=== PATIENT | male | born 1940 | race Caucasian/White ===

== ENCOUNTER 2023-01-11 11:46 | Emergency (ER) | payer MEDICARE, OTHER, SELFPAY ==
[2023-01-11] VITALS (15 sets, daily range): BP systolic 134–152; BP diastolic 71–79; PULSE 48–66; RESP 16; TEMP 36.6; O2SAT 96–99; BMI 28.3
--- NOTE | 2023-01-11 17:10 | CRLHL7_ITS ---
For Patients: As a result of the Century Cures Act, medical imaging exams and procedure reports are released immediately into your electronic medical record. You may view this report before your referring provider. If you have questions, please contact your health care provider. HISTORY: Fall. Lateral ankle pain. TECHNIQUE: Left ankle 3 views. COMPARISON: None. FINDINGS: No fracture. Ankle mortise is congruent. Joint spaces are maintained. Thickening of retrocalcaneal soft tissues near the distal Achilles tendon. Soft tissue swelling in the lower leg and at the ankle. IMPRESSION: 1. No acute bone abnormality. 2. Soft tissue thickening in the area of the Achilles insertion on the calcaneus may be from tendinopathy. Dictated by Oz Segovia MD @ 01/11/2023 5:50:38 PM (Electronically Signed)
--- NOTE | 2023-01-11 17:23 | ED_ITS ---
HPI - Extremity Injury (Lower) General Chief Complaint: Extremity Pain/Injury, Lower Stated Complaint: L ankle injury Time Seen by Provider: 01/11/23 17:03 History of Present Illness HPI Narrative: 82-year-old man presenting to the emergency department with neighbor after sustaining an injury to his left foot/ankle. He has pain there. Has been able to ambulate gingerly. Slipped on the ice outside about 4 days ago. Has not removed his shoes or socks in the interim. No other injuries apparently were sustained. No fever. No rashes. Has had swelling of the ankle area. Related Data Home Medications Medication Instructions Recorded Confirmed atorvastatin 20 mg tablet mg 01/11/23 lisinopril 5 mg tablet mg 01/11/23 omeprazole 20 mg capsule,delayed mg 01/11/23 release tamsulosin 0.4 mg capsule mg PO 01/11/23 warfarin 2.5 mg tablet mg 01/11/23 Allergies Allergy/AdvReac Type Severity Reaction Status Date / Time No Known Drug Allergies Allergy Verified 01/11/23 12:17 Review of Systems Status of ROS: Reports: 6 or more systems reviewed and unremarkable except as noted in History and below [facility] Social History Smoking Status: Never smoker How often do you have a drink containing alcohol: never AUDIT-C Alcohol total score: 0 Non-prescribed substance use: denies use Exam Narrative: Exam Narrative: Pleasant. He is NAD. Personal hygiene seems to be suffering a little. Is lying in the bed semi-recumbent. Moving all extremities without difficulty, though movement involving the left ankle is painful. Is a gingerly remove both shoes and socks from both feet able to examine better. Toenails are getting a little long and thick. No inflammatory change related to this. There is some hemosiderin deposition around the left ankle and superior to that. He is tender in particular generally to palpation of the lateral malleolus. Somewhat on the medial as well but less so. There is 1+ pitting edema diffusely around the ankle. Able to dorsiflex and plantar flex without significant difficulty. Most noticeable with some odor and moisture on the feet as I was removing the socks. There are holes in the socks and stained with body fluid on the lateral plantar surface. This is consistent with some edematous call loss of the in might be a blister formation also within the heel callus on the plantar surface. All consistent with prolonged moisture/trench foot. There is wet black decay in between the left 4th/5th and 3rd/4th toes. I do not however appreciate cellulitic change. Const: Vital Signs, click to edit/add: Vital Signs - 24 hr 01/11/23 12:14 Temperature 97.8 F Pulse Rate [Left P ulse Oximeter] 48 L Respiratory Rate 16 Blood Pressure [Le ft Upper Arm] 151/73 H Pulse Oximetry 97 Oxygen Delivery Me thod Room Air Documenting provider has reviewed patient's vital signs: yes Course Vital Signs Vital signs: Initial Vital Signs Temperature 97.8 F 01/11/23 12:14 Temperature Source Temporal Artery Scan 01/11/23 12:14 Pulse Rate 48 L 01/11/23 12:14 Respiratory Rate 16 01/11/23 12:14 Blood Pressure 151/73 H 01/11/23 12:14 Blood Pressure Mean 99 01/11/23 12:14 Blood Pressure Position Sitting 01/11/23 12:14 Pulse Oximetry 97 01/11/23 12:14 Oxygen Delivery Method 01/11/23 12:14 Vital Signs Temperature 97.8 F 01/11/23 12:14 Pulse Rate 48 L 01/11/23 12:14 Respiratory Rate 16 01/11/23 12:14 Blood Pressure 151/73 H 01/11/23 12:14 Pulse Oximetry 97 01/11/23 12:14 Oxygen Delivery Method 01/11/23 12:14 Temperature 97.8 F 01/11/23 12:14 Pulse Rate 55 L 01/11/23 18:32 Respiratory Rate 16 01/11/23 12:14 Blood Pressure 152/79 H 01/11/23 18:32 Pulse Oximetry 96 01/11/23 18:32 Oxygen Delivery Method 01/11/23 12:14 MDM - Extremity Injury (Lower) MDM Narrative Medical decision making narrative: Pending at this time is x-ray from the ankle. Would reassess foot after better cleaning and a period of drying. By my read X-rays appear negative for acute bony abnormality. Osteoarthritic changes. There is some evidence of soft tissue swelling. Mortise maintained. See radiology over-read as below. FINDINGS: No fracture. Ankle mortise is congruent. Joint spaces are maintained. Thickening of retrocalcaneal soft tissues near the distal Achilles tendon. Soft tissue swelling in the lower leg and at the ankle. IMPRESSION: 1. No acute bone abnormality. 2. Soft tissue thickening in the area of the Achilles insertion on the calcaneus may be from tendinopathy. Discharge Plan Discharge Clinical Impression: Ankle sprain and strain, Trench foot Patient Disposition: Home w/ Parent or Adult Condition: Stable Additional Instructions: Can use these Jose wraps to hold on icing packs as discussed. Remember not to ice directly to your skin but through thin layer of cloth. Elevate for comfort when at rest. Can use the Aircast to help you get about over this next week. Would be good to try to limit your ambulation though over the next few days. See handout for some exercises/stretches that you can start doing. Follow-up if really not improved in a week - 10 days. Important to allow your feet to dry out. I think that is a good suggestion that you move to some shoes that would be easier to take on and off. Prescriptions: No Action atorvastatin 20 mg tablet Label Comments: TAKE 1 TABLET BY MOUTH ONCE DAILY. warfarin 2.5 mg tablet Label Comments: TAKE ONE-HALF TABLET (2.5 MG) BY MOUTH EVERY MON, WED, FRI; 1 TABLET (2.5 MG) ALL OTHER DAYS IN THE EVENING OR DIRECTED tamsulosin 0.4 mg capsule PO Label Comments: TAKE ONE CAPSULE BY MOUTH ONCE DAILY AFTER A MEAL omeprazole 20 mg capsule,delayed release(DR/EC) Label Comments: TAKE ONE CAPSULE BY MOUTH ONCE DAILY BEFORE A MEAL lisinopril 5 mg tablet Label Comments: TAKE 1 TABLET BY MOUTH ONCE DAILY Follow Up/Referrals: Fernando Alex MD [Primary Care Provider] - Stand Alone Forms: [employer] Info Instructions
== END 2023-01-11 18:55 | disposition home or self-care (01) ==
PROVIDERS: Emergency Provider Family Medicine; PCP Family Medicine
DX: S93.402A Sprain of unspecified ligament of left ankle, initial encounter (principal); W00.9XXA Unspecified fall due to ice and snow, initial encounter
CPT/HCPCS: 73610; 99283; 99284

== ENCOUNTER 2023-09-01 07:56 | Outpatient (CLI) | payer MEDICARE, OTHER, SELFPAY | END 2023-09-01 07:57 | disposition home or self-care (01) | LOC: WOUND 07:58 | PROVIDERS: PCP Family Medicine; Visit Provider Nurse Practitioner Family | DX: I87.313 Chronic venous hypertension (idiopathic) with ulcer of bilateral lower extremity (principal); E11.622 Type 2 diabetes mellitus with other skin ulcer; L97.828 Non-pressure chronic ulcer of other part of left lower leg with other specified severity; L97.818 Non-pressure chronic ulcer of other part of right lower leg with other specified severity | CPT/HCPCS: 97602; 99214 ==

== ENCOUNTER 2023-09-09 09:47 | Outpatient (CLI) | payer MEDICARE, OTHER, SELFPAY | END 2023-09-09 09:48 | disposition home or self-care (01) | LOC: WOUND 09:47 | PROVIDERS: PCP Family Medicine; Visit Provider Nurse Practitioner Family | DX: I87.313 Chronic venous hypertension (idiopathic) with ulcer of bilateral lower extremity (principal); L97.828 Non-pressure chronic ulcer of other part of left lower leg with other specified severity; L97.818 Non-pressure chronic ulcer of other part of right lower leg with other specified severity | CPT/HCPCS: 99213 ==

== ENCOUNTER 2023-09-15 08:53 | Outpatient (CLI) | payer MEDICARE, OTHER, SELFPAY | END 2023-09-15 08:54 | disposition home or self-care (01) | LOC: WOUND 08:53 | PROVIDERS: PCP Family Medicine; Visit Provider Nurse Practitioner Family | DX: E11.622 Type 2 diabetes mellitus with other skin ulcer (principal); I87.313 Chronic venous hypertension (idiopathic) with ulcer of bilateral lower extremity; L97.818 Non-pressure chronic ulcer of other part of right lower leg with other specified severity; L97.828 Non-pressure chronic ulcer of other part of left lower leg with other specified severity | CPT/HCPCS: 99212 ==

== ENCOUNTER 2024-12-11 11:24 | Emergency (ER) | payer MEDICARE, OTHER, SELFPAY ==
--- OUTSIDE RECORDS SUMMARY | 2024-12-11 11:26 | XMS_ITS ---
Author Organization [facility] Address Unknown Problems Problem Status Start Date End Date ENCOUNTER FOR SURGICAL AFTER CARE FOLLOWING SURGERY ON THE DIGESTIVE SYSTEM (Primary) (Z48.815 - ICD-10-CM) ACTIVE 019 DISPLACED FRACTURE OF BASE O F NECK OF LEFT FEMUR, SUBSEQUENT ENCOUNTER FOR CLOSED FRACTURE WITH ROUTINE HEALING (Primary) (S72.042D - ICD-10-CM) RESOLVED 05/23/2017 07/17/2019 MUSCLE WEAKNESS (GENERALIZED) (M62.81 - ICD-10-CM) RES OLVED 05/23/2017 07/17/2017 DIFFICULTY IN WALKING, NOT E LSEWHERE CLASSIFIED (R26.2 - ICD-10-CM) RESOLVED 05/23/2017 07/17/2017 DIFFICULTY IN WALKING, NOT E LSEWHERE CLASSIFIED (R26.2 - ICD-10-CM) ACTIVE 07/22/2019 ESSENTIAL (PRIMARY) HYPERTENSION (I10 - ICD-10-CM) ACT JAZMYNE 05/23/2017 TYPE 2 DIABETES MELLITUS WIT HOUT COMPLICATIONS (E11.9 - ICD-10-CM) ACTIVE 05/23/2017 PERSONAL HISTORY OF PULMONAR Y EMBOLISM (Z86.711 - ICD-10-CM) ACTIVE 05/23/2017 CARE HOME (CURRENT) USE OF A NTICOAGULANTS (Z79.01 - ICD-10-CM) ACTIVE 05/23/2017 POLYOSTEOARTHRITIS, UNSPECIFIED (M15.9 - ICD-10-CM) AC TIVE 05/23/2017 HISTORY OF FALLING (Z91.81 - ICD-10-CM) RESOLVED 0 05/23/2017 07/17/[address] SCOTT LEVEL MONITORING (Z51.81 - ICD-10-CM) ACTIVE 07/22/2019 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 with no home health services [facility] 05/23/2017 04:00 pm EDT - 07/17/2017 05:40 pm EDT Discharge - Discharged to home or self care - Do Not Use - Private home/apt. with home health services [facility] 07/22/2019 03:45 pm EDT - 07/30/2019 06:11 pm EDT Immunizations Vaccine Date TB 2 Step [facility]oux Skin Test 06/07/2017 0 1:00 pm EDT TB 2 Step [facility]oux Skin Test 05/24/2017 0 6:30 pm EDT Custom Influenza 12/10/2016 01:00 am EST PPSV23, Pneumovax 23 11/19/2005 01:00 am EST PCV13, Pktjqhd86 12/10/2016 01:00 am EST QuantiFERON-TB Gold 07/26/2019 01:00 am EDT Social History
--- OUTSIDE RECORDS SUMMARY | 2024-12-11 11:26 | XMS_ITS | Clinical Summary ---
Author Organization [facility] Address [place], [place] [address] Care Team Providers Care Fleet Mechanic Name Role Phone Fernando Alex MD Primary Care Provider [phone] Allergies No known active allergies Medications brimonidine (ALPHAGAN) 0.2 % ophthalmic solution Place 1 Drop into left eye 2 times daily. 12/12/19 21 Active tamsulosin 0.4 mg capsuleIndications :BPH without urinary obstruction Take 1 Capsule (0.4 mg) by mouth once daily after a meal. 90 Capsule 3 10/26/20 24 Active metFORMIN (GLUCOPHAGE XR) 500 mg Extended-Release tabletIndications: Type 2 diabetes mellitus without complication, without long-term current use of insulin (HC) Take 2 Tablets (1,000 mg) by mouth once daily. Take in the morning. 180 Tablet 3 10/26/20 24 Active lisinopriL (PRINIVIL; ZESTRIL) 5 mg tabletIndications: Essential hypertension Take 1 Tablet (5 mg) by mouth once daily. 90 Tablet 3 10/26/20 24 Active empagliflozin (JARDIANCE) 10 mg tabletIndications: Type 2 diabetes mellitus without complication, without long-term current use of insulin (HC) Take 1 Tablet (10 mg) by mouth once daily. Take in the morning with breakfast. 90 Tablet 3 10/26/20 24 Active atorvastatin (LIPITOR) 20 mg tabletIndications: Hyperlipidemia, unspecified hyperlipidemia type Take 1 Tablet (20 mg) by mouth once daily. 90 Tablet 3 10/26/20 24 Active warfarin (COUMADIN) 2.5 mg tabletIndications: Bilateral pulmonary embolism (HC),Anticoagulati on monitoring, INR range 2-3 Take by mouth 2.5mg (1 tablet) every Friday/Fri / day and 1.25mg (1/2 tablet) rest of days in the evening or as directed per INR results 68 Tablet 11/23/19 25 Active warfarin (COUMADIN) 2.5 mg tabletIndications: Bilateral pulmonary embolism (HC),Anticoagulati on monitoring, INR range 2-3 Take by mouth 2.5 mg (2.5 mg x 1) every e, Leena, Sat; 1.25 mg (2.5 mg x 0.5) all other days in the evening OR as directed 10/26/20 24 025 Discontinued Active Problems Problem Noted Date Diagnosed Date Type 2 diabetes mellitus wit hout complication, without long-term current use of insulin 01/01/2022 Overview (01/01/2022): Diagnosed again with blood sugar over 200 and A1C of 8.8 as of 01/01/2022 Asbestosis 12/24/2021 BPH without urinary obstruction 08/02/2019 Essential hypertension 12/16/2018 Hyperlipidemia 07/25/2017 Anticoagulation monitoring, INR range 2-3 2013 Edema 04/16/2013 CTS (carpal tunnel syndrome) 04/01/2013 Overview (08/30/2019): Bilateral worse on left S/P right carpal tunnel release in 04/2013 Bilateral pulmonary embolism 03/26/2013 Overview (04/01/2013): Bilateral extensive PE diagnosed 03/23/2013 Arthritis 01/18/2013 Resolved Problems Problem Noted Date Diagnosed Date Resolved Date Asbestosis 02/03/2024 02/03/2024 Controlled type 2 diabetes m ellitus without complication, without long-term current use of insulin 07/25/2017 07/07/2019 Low back pain 04/16/2011 09/29/2015 Encounters Date Type Department Care Team Description 11/22/2024 Refill [facility] [address] [place] [address] Fernando Alex MD Refill Request (Warfarin) 11/15/2024 11:15 AM SLITTER CUT OFF OPERATOR Orders Only [facility] [address] [place] [address] [place] [facility] 11/15/2024 Anticoagulation (warfarin) [facility] [address] [place] [address] 1, [place] [facility] Anticoagulation 10/26/2024 9:10 AM SLITTER CUT OFF OPERATOR Office Visit [facility] [address] [place] [address] Fernando Alex MD Diabetes (Routine follow up); Immunization/Injection 10/26/2024 Anticoagulation (warfarin) [facility] [address] [place] [address] 1, [place] [facility] Anticoagulation 10/26/2024 Travel 10/20/2024 9:00 AM SLITTER CUT OFF OPERATOR Orders Only [facility] [place] [address] [place] [facility] 10/20/2024 Anticoagulation (warfarin) [facility] [address] [facility] [place] [facility] Antico[facility] 10/20/2024 Travel 09/15/2024 Telephone [facility] [address] [place] [address] Fernando Alex MD Anticoagulation (Lab orders) 09/10/2024 7:45 AM CDT Orders Only [facility] [address] [place] [address] [place] [facility] 09/10/2024 Anticoagulation (warfarin) [facility] [address] [facility] [place] [facility] Anticoagulation (Lab ) 09/10/2024 Travel from Last 3 Months Immunizations Name Administration Dates Next Due COVID-19 VACCINE SPIKEVAX (M ODERNA 50MCG/0.5ML) 12YO+ PFS 03/05/2024 COVID-19 vaccine (MYR-Bio NTech 30mcg/0.3mL) 12YO+ BIVALENT PF, MDV 12/20/2022 COVID-19 vaccine (MYR-Bio NTech 30mcg/0.3mL) 12YO+ ANDRES-SUCROSE PF, MDV 12/24/2021 COVID-19 vaccine (Pfizer-Bio NTech 30mcg/0.3mL) PF, MDV 01/30/2021,01/09/2021 Influenza, High-dose Inactivated 12/10/2016,09/17,09/27/2014 Influenza, IIV3 (Age >=3 years) 08/12/2013,11/27,11/19/2005 Influenza, Inactivated AIIV4 (Age 65+ Years) Preserv Free 08/13/2023,12/20/2022,12/24/2021,2019 Influenza, Inactivated IIV3 (Age 65+ Years) Preserv Free 10/26/2024,08/30/2019,10/29/2017 Pneumococcal Poly,23-Valent (Pneumovax) 11/19/2005 Pneumococcal conj 13-Valent (Prevnar 13) 12/10/2016 Td (Age >=7 Years) 11/19/2005 Td, Preservative Free (age > = 7 Years) 11/19/2005 Tdap 03/14/2021 Family History Medical History Relation Name Comments COPD Brother on oxygen; of copd at 86 Other Father of old age in mid 80s Stroke Mother of complic ations of stroke at around 85 Relation Name Status Comments Brother Father (Age 80s) Old age Mother (Age 85) CVA Social History Tobacco Use Types Packs/Day Years Used Date Smoking Tobacco: Never Passive Smoke Exposure: Never Smokeless Tobacco: Never Tobacco Cessation:Counseling Given: Yes Alcohol Use Standard Drinks/Week Comments Not Currently 0 (1 standard drink = 0.6 oz pur e alcohol) PHQ-2 Answer Date Recorded PHQ-2 TOTAL SCORE 1 03/05/2024 Social Connections Answer Date Recorded Do you often feel lonely or isolated from those around you? 0 10/26/2024 Alcohol Use Answer Date Recorded How often do you have a drink containing alcohol ? 0 08/13/2023 Average Number of Drinks Not on file 023 Frequency of Binge Drinking Not on file 07/19 Financial Resource Strain Answer Date R ecorded Difficulty of Paying Living Expenses 3 10/26/2024 Difficulty of Paying Living Expenses Not on file 10/26/2024 Food Insecurity Answer Date Recorded Do you worry your food will run out before you are able to buy more? 1 10/26/2024 Transportation Needs Answer Date Record ed Does lack of transportation keep you from medica l appointments? 1 10/26/2024 Does lack of transportation keep you from work, meetings or getting things that you need? 1 10/26/2024 Housing Stability Answer Date Recorded What is your housing situation today? 1 10/26/2024 Utilities Answer Date Recorded Do you have trouble paying f or utilities (for example, heat, electricity, water, phone)? 1 10/26/2024 Sex and Gender Information Value Date Recorded Sex Assigned at Not on file Legal Sex Male 5:25 AM SLITTER CUT OFF OPERATOR Gender Identity Not on file Sexual Orientation Not on file Occupation Industry Job Start Date Job End Date Retired Not on file Not on file Not on file Obstetrics History Last Filed Vital Signs Vital Sign Reading Time Taken Comments Blood Pressure 128/64 10/26/2024 9:50 AM SLITTER CUT OFF OPERATOR Pulse 44 10/26/2024 9:13 AM SLITTER CUT OFF OPERATOR Temperature 36.2 C (97.2 F) 10/26/2024 9:13 AM SLITTER CUT OFF OPERATOR Respiratory Rate 16 09/11/2022 2:52 PM CDT Oxygen Saturation 98% 10/26/2024 9:13 AM SLITTER CUT OFF OPERATOR Inhaled Oxygen Concentration - - Weight 80 kg (176 lb 6.4 oz) 10/26/2024 9:08 AM SLITTER CUT OFF OPERATOR Height 165.3 cm (5' 5.08) 03/05/2024 9:14 AM CD T Body Mass Index 29.28 03/05/2024 9:14 AM CDT Plan of Treatment Upcoming Encounters Date Type Department Care Team (Late st Contact Info) Description 12/16/2024 7:30 AM SLITTER CUT OFF OPERATOR Orders Only [facility] [address] [facility] [address] [place] 01/18/2025 9:30 AM SLITTER CUT OFF OPERATOR Orders Only [facility] [address] [place] [address] [place] 01/25/2025 9:35 AM CDT Office Visit [facility] [address] [facility] [address] Fernando Alex MD [address] [facility] [address] Health Maintenance Due Date Last Done Comments Zoster (shingles) series for age 50+ (1 of 2) 1988 RSV vaccine for adults or (1 - 1-dose 75+ series) 2013 COVID-19 vaccine series (2023- season) 2024 03/05/2024, 12/20/2022, 05/17/2022, Additional history exists BMI (ht and wt on same day) for age 18+ 03/05/2025 03/05/2024, 02/03/2024, 09/01/2023, Additional history exists Depression screening for age 12+ 03/05/2025 03/05/2024, 12/20/2022, 12/24/2021, Additional history exists Medicare Wellness for age 65+ 03/06/2025, 12/24/2021, 08/18/2020, Additional history exists Tetanus booster 03/14/2031 03/14/2021, 01/2006, 11/19/2005 Pneumococcal series for age 50+ Completed 7, 11/19/2005 Tdap Completed 03/14/2021 Influenza for age 65+ Completed 10/26/2024 , 08/13/2023, 12/20/2022, Additional history exists Procedures Procedure Name Priority Date/Time Associated Diagnosis Comments INR,POCT Routine 11/15/2024 12:21 PM SLITTER CUT OFF OPERATOR Bilateral pulmonary embolism (HC) Anticoagulation monitoring, INR range 2-3 INR,POCT Routine 10/26/2024 10:14 AM SLITTER CUT OFF OPERATOR Bilateral pulmonary embolism (HC) Anticoagulation monitoring, INR range 2-3 HEMOGLOBIN A1C MONITORING (POCT) Routine 10/20/2024 9:07 AM SLITTER CUT OFF OPERATOR Type 2 diabetes mellitus without complication, without long-term current use of insulin (HC) VITAMIN B12 Routine 10/20/2024 9:06 AM SLITTER CUT OFF OPERATOR Chronic GERD LIPID PANEL W REFLEX MEASURED LDL Routine 10/20/2024 9:06 AM SLITTER CUT OFF OPERATOR Other hyperlipidemia BASIC METABOLIC PANEL Routine 10/20/2024 9:06 AM SLITTER CUT OFF OPERATOR Essential hypertension PROTIME-INR Routine 10/20/2024 9:05 AM SLITTER CUT OFF OPERATOR Bilateral pulmonary embolism (HC) Anticoagulation monitoring, INR range 2-3 INR,POCT Routine 09/10/2024 7:54 AM CDT Bilateral pulmonary embolism (HC) Anticoagulation monitoring, INR range 2-3 from Last 3 Months Results * (ABNORMAL) INR - POCT [36131.2] - Standing Order (11/15/2024 12:21 PM SLITTER CUT OFF OPERATOR) Only the most recent of3 resultswithin the time period is included. INR 2.4(H) ratio [facility] Comment: INRs >2.9 may be falsely elevated in patients receiving either unfractionated Heparin or Low Molecular Weight Heparin. Follow up testing in a hospital laboratory may be helpful if clinically indicated. INR results of > or = 5.0 should be verified using the standard venipuncture procedure. Reference Range 0.9-1.1 Moderate-intensity Warfarin Therapy 2.0-3.0 Higher-intensity Warfarin Therapy 3.0-4.0 PROTHROMBIN TIMEP 28.7(H) 10.5 - 13.1 sec [facility] Comment: Point of care fingerstick Prothrombin Time/INR results may vary from venous Prothrombin Time/INR methodologies. Any results exhibiting inconsistency with the patient's clinical status should be repeated using a venous Prothrombin Time/INR method. Blood BLOOD SPECIMEN / Unknown 11/15/2024 12:21 PM SLITTER CUT OFF OPERATOR 11/15/2024 12:22 PM SLITTER CUT OFF OPERATOR us Fernando Alex MD LABORATORY Final Resu lt [facility] [address] [place] [address], [facility] [address] [place] [address] * (ABNORMAL) HEMOGLOBIN A1C MONITORING POCT (10/20/2024 9:07 AM SLITTER CUT OFF OPERATOR) POC HEMOGLOBIN A1C 8.8(H) <6.0 % OF TOTAL HGB [facility] Comment: Any point of care results exhibiting inconsistency with the patient's clinical status should be repeated using a different testing method. Blood BLOOD SPECIMEN / Unknown 10/20/2024 9:07 AM SLITTER CUT OFF OPERATOR 10/20/2024 9:08 AM SLITTER CUT OFF OPERATOR us Fernando Alex MD CHEMISTRY Final Resu lt [facility] [address] [place] [address], [facility] [address] [place] [address] * LIPID PANEL W REFLEX MEASURED LDL (10/20/2024 9:06 AM SLITTER CUT OFF OPERATOR) CHOLESTEROL, TOTAL 145 <200 mg/dL [facility] HDL CHOLESTEROL 52 > OR = 40 mg/dL [facility] TRIGLYCERIDES 93 <150 mg/dL [facility] LDL-CHOLESTEROL 75 mg/dL (calc) [facility] Comment: Reference range: <100 Desirable range <100 mg/dL for primary prevention; <70 mg/dL for patients with CHD or diabetic patients with > or = 2 CHD risk factors. LDL-C is now calculated using the Edward-Lindy calculation, which is a validated novel method providing better accuracy than the Friedewald equation in the estimation of LDL-C. Edward MATT et al. SHAYNE. 2013;310(19): 2282-1437 (http://education.[employer]/faq/GPO193) CHOL/HDLC RATIO 2.8 <5.0 (calc) [facility] NON HDL CHOLESTEROL 93 <130 mg/dL (calc) [facility] Comment: For patients with diabetes plus 1 major ASCVD risk factor, treating to a non-HDL-C goal of <100 mg/dL (LDL-C of <70 mg/dL) is considered a therapeutic option. Blood BLOOD SPECIMEN / Unknown 10/20/2024 9:06 AM SLITTER CUT OFF OPERATOR 10/20/2024 9:07 AM SLITTER CUT OFF OPERATOR Fernando Alex MD CHEMISTRY Final Resu lt [facility] [address] [place] [address], [facility] [address] [place] [address] * VITAMIN B12 (10/20/2024 9:06 AM SLITTER CUT OFF OPERATOR) [facility] VITAMIN B12 534 200 - 1,100 pg/mL [facility] Blood BLOOD SPECIMEN / Unknown 10/20/2024 9:06 AM SLITTER CUT OFF OPERATOR 10/20/2024 9:07 AM SLITTER CUT OFF OPERATOR Fernando Alex MD CHEMISTRY Final Resu lt Performing Organization Address City/[facility]/ZIP Co de Phone Number [facility] [address] [place] [phone], [facility] [address] [place] [address] * (ABNORMAL) BASIC METABOLIC PANEL (10/20/2024 9:06 AM SLITTER CUT OFF OPERATOR) Pathologist [facility] GLUCOSE 190(H) 65 - 99 mg/dL [facility] Comment: Fasting reference interval For someone without known diabetes, a glucose value >125 mg/dL indicates that they may have diabetes and this should be confirmed with a follow-up test. UREA NITROGEN (BUN) 32(H) 7 - 25 mg/dL [facility] CREATININE 1.28(H) 0.70 - 1.22 mg/dL [facility] EGFR 55(L) > OR = 60 mL/min/1.7 3m2 [facility] BUN/CREATININE RATIO 25(H) 6 - 22 (calc) [facility] SODIUM 139 135 - 146 mmol/L [facility] POTASSIUM 5.3 3.5 - 5.3 mmol/L [facility] CHLORIDE 104 98 - 110 mmol/L [facility] CARBON DIOXIDE 27 20 - 32 mmol/L [facility] ELECTROLYTE BALANCE 8 7 - 17 mmol/L (calc) [facility] CALCIUM 9.2 8.6 - 10.3 mg/dL [facility] Blood BLOOD SPECIMEN / Unknown 10/20/2024 9:06 AM SLITTER CUT OFF OPERATOR 10/20/2024 9:07 AM SLITTER CUT OFF OPERATOR us Fernando Alex MD CHEMISTRY Final Resu lt [facility] [address] [place] [address], [facility] [address] [place] [address] * (ABNORMAL) PROTIME-INR [[id number]] - Standing Order (10/20/2024 9:05 AM SLITTER CUT OFF OPERATOR) INR 4.2(H) <1.3 10/20/2024 2:01 PM [facility] PROTIME 48.5(H) 10.6 - 12.4 sec 10/20/2024 2:01 PM SLITTER CUT OFF OPERATOR [facility] Blood BLOOD SPECIMEN / Unknown [facility] / Unknown 10/20/2024 9:05 AM SLITTER CUT OFF OPERATOR 10/20/2024 9:05 AM SLITTER CUT OFF OPERATOR Narrative [facility] - 10/20/2024 2:01 PM SLITTER CUT OFF OPERATOR Therapeutic Range 2.0-3.0 for most anticoagulated patients 2.5-3.5 or 4.0 for high risk patients The INR is only used for patients on stable oral anticoagulant therapy. It makes no significant contribution to the diagnosis or treatment of patients whose Protime is prolonged for other reasons. INR results are increased when heparin levels exceed 1.0 U/mL, which corresponds to an aPTT >125 seconds if the patient is on UFH. us Fernando Alex MD HEMATOLOGY Final Resu lt [facility] [address] [place] [address], from Last 3 Months Insurance MEDICARE PB ONLY MEDICARE PART B HB ONLY [employer] [id number] [facility] Care Teams Fleet Mechanic Relationship Specialty Start Date End Date Fernando Alex MD [address] [place] [address] PCP - General Family Practice 07/25/17
[2024-12-11 11:27] VITALS: BP 146/68; PULSE 57; RESP 20; TEMP 36.3; O2SAT 95
--- NOTE | 2024-12-11 11:50 | CRLHL7_ITS ---
For Patients: As a result of the Cures Act, medical imaging exams and procedure reports are released immediately into your electronic medical record. You may view this report before your referring provider. If you have questions, please contact your health care provider. INDICATION: Cough. Possible pneumonia. COMPARISON: None. FINDINGS: Heart size is at the upper limit of normal. There is atherosclerotic calcification within the aortic arch. There is small calcified benign granuloma within left mid lung. The lungs are otherwise essentially clear. The pulmonary vasculature and pleural surfaces appear normal. The bony thorax appears intact. IMPRESSION: No acute process identified. Dictated by He Amin MD @ 12/11/2024 1:11:14 PM (Electronically Signed)
--- NOTE | 2024-12-11 11:51 | ED_ITS ---
HPI - General Adult General Chief complaint: Cough Stated complaint: Possible Pneumonia, Can't keep Balance Time Seen by Provider: 12/11/24 11:47 History of Present Illness HPI narrative: This 84-year-old male comes in reporting upper respiratory symptoms that began yesterday. He has cough and some congestion. He does not report any fevers. He arrives here with reassuring vital signs. Related Data Home Medications ?Medication ?Instructions ?Recorded ?Confirmed atorvastatin 20 mg tablet mg 01/11/23 08/21/23 lisinopril 5 mg tablet mg 01/11/23 08/21/23 omeprazole 20 mg capsule,delayed mg 01/11/23 08/21/23 release tamsulosin 0.4 mg capsule mg PO 01/11/23 08/21/23 warfarin 2.5 mg tablet mg 01/11/23 08/21/23 Previous Rx's ?Medication ?Instructions ?Recorded bacitracin 500 unit/gram topical 1 applic topical TID #14 grams 08/21/23 ointment Allergies Allergy/AdvReac Type Severity Reaction Status Date / Time No Known Drug Allergies Allergy Verified 08/21/23 12:54 Review of Systems Status of ROS: Reports: 10 or more systems reviewed and unremarkable except as noted in History and below Narrative: Constitutional: No fevers, no weight gain or loss. Eyes: No discharge. No vision changes. HENT: No congestion, no sore throat, no ear pain. Cardiovascular: No chest pain, no palpitations. Respiratory: No shortness of breath, no wheezes. He has a cough. Gastrointestinal: No abdominal pain, no vomiting, no diarrhea. Genitourinary: No dysuria, no hematuria. Musculoskeletal: Normal range of motion. Skin: No rashes, no pruritis. Neurological: No weakness, sensory change, speech change. He reports some dizziness. Endo/Heme/Allergies: No bruising or bleeding. No polydipsia. Pysch: no suicidality, no anxiety, no insomnia. All other systems reviewed and are negative. [facility] Social History Smoking Status: Never smoker How often do you have a drink containing alcohol: never AUDIT-C Alcohol total score: 0 Non-prescribed substance use: denies use Exam Narrative: Exam Narrative: Constitutional: Well-developed, well-nourished, no acute distress. HEENT: Normocephalic, atraumatic. Neck: Normal range of motion. Nontender. Supple. Heart: Regular. No murmurs. Normal rate. Intact distal pulses. Lungs: Clear to auscultation. No chest discomfort. No wheezes, rhonchi, or rales. Abdomen: Normal bowel sounds. Nontender. No rebound tenderness. Genitalia: Deferred. Back: No midline tenderness. Normal range of motion. Extremities: Normal range of motion. No injury. Skin: Intact. No rash. Warm. No erythema or pallor. Neurologic: No altered sensation. No weakness. Alert and oriented. Psychiatric: No suicidality. No anxiety or depression. No insomnia. Nursing notes and vitals signs are reviewed. Const: Vital Signs, click to edit/add: Vital Signs - 24 hr 12/11/24 11:27 Temperature 97.4 F L Pulse Rate [Pulse Oximeter] 57 L Respiratory Rate 20 Blood Pressure [Ri ght Upper Arm] 146/68 H Pulse Oximetry 95 Oxygen Delivery Me thod Room Air Course Vital Signs Vital signs: Initial Vital Signs Temperature 97.4 F L 12/11/24 11:27 Temperature Source Oral 12/11/24 11:27 Pulse Rate 57 L 12/11/24 11:27 Respiratory Rate 20 12/11/24 11:27 Blood Pressure 146/68 H 12/11/24 11:27 Blood Pressure Mean 94 12/11/24 11:27 Blood Pressure Position Sitting 12/11/24 11:27 Pulse Oximetry 95 12/11/24 11:27 Oxygen Delivery Method Room Air 12/11/24 11:27 Vital Signs Temperature 97.4 F L 12/11/24 11:27 Pulse Rate 57 L 12/11/24 11:27 Respiratory Rate 20 12/11/24 11:27 Blood Pressure 146/68 H 12/11/24 11:27 Pulse Oximetry 95 12/11/24 11:27 Oxygen Delivery Method Room Air 12/11/24 11:27 Temperature 97.4 F L 12/11/24 11:27 Pulse Rate 57 L 12/11/24 11:27 Respiratory Rate 20 12/11/24 11:27 Blood Pressure 146/68 H 12/11/24 11:27 Pulse Oximetry 95 12/11/24 11:27 Oxygen Delivery Method Room Air 12/11/24 11:27 Medical Decision Making MDM Narrative Medical decision making narrative: This patient comes in with upper respiratory symptoms that began yesterday. Nasal pharyngeal swab returns positive for influenza A. The patient's chest x- ray by my review shows no acute infiltrates. The patient does have normal vital signs. His oximetry is ranging around 93-95% on room air. He did receive an oral dose of dexamethasone 10 mg and I did provide and [facility] prescription for Tamiflu. Had he is instructed to return if becoming more short of breath. Lab Data Labs: Lab Results 12/11/24 12/11/24 Range/Units 11:33 11:58 WBC 9.49 (4.50-11.00) K/uL RBC 4.24 L (4.30-5.90) m/uL Hgb 12.9 L (13.5-17.5) gm/dL Hct 39.5 (37.0-53.0) % MCV 93 (80-100) fL MCH 30 (26-34) pg MCHC 33 (32-36) gm/dL RDW Coeff of Rae 12.1 (11.5-15.5) % Plt Count 154 (140-440) K/uL Neut % (Auto) 79.2 H (42.0-72.0) % Lymph % (Auto) 5.3 L (20-44) % Windsor % (Auto) 13.3 H (0.0-11.0) % Eos % (Auto) 1.6 (0.0-7.0) % Baso % (Auto) 0.2 (0.0-3.0) % Neut # (Auto) 7.50 H (1.7-7.0) K/uL Lymph # (Auto) 0.50 L (0.90-2.90) K/uL Windsor # (Auto) 1.30 H (0.00-0.90) K/UL Eos # (Auto) 0.15 (0.00-0.50) K/uL Baso # (Auto) 0.02 (0.00-0.30) K/uL Abs Immat Gran (auto) 0.04 (0.00-0.30) K/uL Imm/Tot Granulo (auto) 0.4 % SARS-CoV-2 (PCR) Negative SARS-CoV-2 (Negative) Influenza Type A (PCR) POSITIVE PCR FLU A A (Negative) Influenza Type B (PCR) Negative PCR FLU B (Negative) RSV (PCR) Negative PCR RSV (Negative) ECG Data Attestation: I personally reviewed and interpreted this ECG as follows: Interpretation: Sinus bradycardia, rate 52 beats per minute. There are no specific ST or T-wave abnormalities. Discharge Plan Discharge Clinical Impression: Influenza A Patient Disposition: Home, Self-Care Condition: Stable Additional Instructions: Take medication as prescribed. Follow up with MD return if worsening symptoms occur. Prescriptions: No Action bacitracin 500 unit/gram ointment 1 applic topical TID Qty: 14 1RF atorvastatin 20 mg tablet Patient Comments: TAKE 1 TABLET BY MOUTH ONCE DAILY. warfarin 2.5 mg tablet Patient Comments: TAKE ONE-HALF TABLET (2.5 MG) BY MOUTH EVERY MON, WED, FRI; 1 TABLET (2.5 MG) ALL OTHER DAYS IN THE EVENING OR DIRECTED tamsulosin 0.4 mg capsule PO Patient Comments: TAKE ONE CAPSULE BY MOUTH ONCE DAILY AFTER A MEAL omeprazole 20 mg capsule,delayed release(DR/EC) Patient Comments: TAKE ONE CAPSULE BY MOUTH ONCE DAILY BEFORE A MEAL lisinopril 5 mg tablet Patient Comments: TAKE 1 TABLET BY MOUTH ONCE DAILY Follow Up/Referrals: Fernando Alex MD [Primary Care Provider] - Stand Alone Forms: [employer] Info Instructions
[2024-12-11 12:10] LABS: Basophils Absolute Auto 0.02 K/uL (0.00-0.30); Basophils Percent Auto 0.2 % (0.0-3.0); Eosinophils Absolute Auto 0.15 K/uL (0.00-0.50); Eosinophils Percent Auto 1.6 % (0.0-7.0); Hematocrit 39.5 % (37.0-53.0); Hemoglobin* 12.9 gm/dL (13.5-17.5); Immature Granulocytes Abs Auto 0.04 K/uL (0.00-0.30); Immature Granulocytes Pct Auto 0.4 %; Lymphocytes Percent Auto 5.3 % (20-44); Mean Corpuscular HGB Conc 33 gm/dL (32-36); Mean Corpuscular Hemoglobin 30 pg (26-34); Mean Corpuscular Volume 93 fL (80-100); Monocytes Percent Auto 13.3 % (0.0-11.0); Neutrophils Percent Auto 79.2 % (42.0-72.0); Platelet Count* 154 K/uL (140-440); RDW Coefficient of Variation % 12.1 % (11.5-15.5); Red Blood Count 4.24 m/uL (4.30-5.90); White Blood Count* 9.49 K/uL (4.50-11.00)
[2024-12-11 12:13] LABS: Slide Review Reflex No
[2024-12-11 12:23] LABS: PCR FLU A POSITIVE PCR FLU A (Negative); PCR FLU B Negative PCR FLU B (Negative); PCR RSV Negative PCR RSV (Negative); SARS PCR* Negative SARS-CoV-2 (Negative)
--- OUTSIDE RECORDS SUMMARY | 2024-12-11 12:30 | XMS_ITS | Clinical Summary ---
Author Organization [facility] Address [place], [place] [address] Care Team Providers Care Computer Systems Security Analyst Name Role Phone Fernando Alex MD Primary Care Provider [phone] Allergies No known active allergies Medications brimonidine [...] Type Department Care Team Description 11/22/2024 Refill [facility] [address] [place] [address] Fernando Alex MD Refill Request (Warfarin) 11/15/2024 11:15 AM CERAMIC TILE INSTALLER Orders Only [facility] [address] [place] [address] [place] [facility] 11/15/2024 Anticoagulation (warfarin) [facility] [address] [place] [address] 1, [place] [facility]tico[facility] 10/26/2024 9:10 AM CERAMIC TILE INSTALLER Office Visit [facility] [address] [place] [address] Fernando Alex MD Diabetes (Routine follow up); Immunization/Injection 10/26/2024 Anticoagulation (warfarin) [facility] [address] [place] [address] 1, [place] [facility] Anticoagulation 10/26/2024 Travel 10/20/2024 9:00 AM CERAMIC TILE INSTALLER Orders Only [facility] [place] [place] [address] [place] [facility] 10/20/2024 Anticoagulation (warfarin) [facility] [address] [facility] [place] [facility] 10/20/2024 Travel 09/15/2024 Telephone [facility] [address] [place] [address] [address] Fernando Alex MD Anticoagulation (Lab orders) 09/10/2024 7:45 AM CDT Orders Only [facility] [place] [address] [address] [place] [facility] 09/10/2024 Anticoagulation (warfarin) [facility] [address] [facility] [place] [facility]ticoagulation (Lab ) 09/10/2024 Travel from Last 3 Months Immunizations Name Administration Dates Next Due COVID-19 VACCINE SPIKEVAX (M ODERNA 50MCG/0.5ML) 12YO+ PFS 03/05/2024 COVID-19 vaccine ([employer] NTech 30mcg/0.3mL) 12YO+ BIVALENT PF, MDV 12/20/2022 COVID-19 vaccine ([employer] NTech 30mcg/0.3mL) 12YO+ ANDRES-SUCROSE PF, MDV 12/24/2021 [...] on file Legal Sex Male 5:25 AM CERAMIC TILE INSTALLER Gender Identity Not on file Sexual Orientation Not on file Occupation Industry Job Start Date Job End Date Retired Not on file Not on file Not on file Obstetrics History Last Filed Vital Signs Vital Sign Reading Time Taken Comments Blood Pressure 128/64 10/26/2024 9:50 AM CERAMIC TILE INSTALLER Pulse 44 10/26/2024 9:13 AM CERAMIC TILE INSTALLER Temperature 36.2 C (97.2 F) 10/26/2024 9:13 AM CERAMIC TILE INSTALLER Respiratory Rate 16 09/11/2022 2:52 PM CDT Oxygen Saturation 98% 10/26/2024 9:13 AM CERAMIC TILE INSTALLER Inhaled Oxygen Concentration - - Weight 80 kg (176 lb 6.4 oz) 10/26/2024 9:08 AM CERAMIC TILE INSTALLER Height 165.3 cm (5' 5.08) 03/05/2024 9:14 AM CD T Body Mass Index 29.28 03/05/2024 9:14 AM CDT Plan of Treatment Upcoming Encounters Date Type Department Care Team (Late st Contact Info) Description 12/16/2024 7:30 AM CERAMIC TILE INSTALLER Orders Only [facility] [address] [facility] [place] [address] [place] 01/18/2025 9:30 AM CERAMIC TILE INSTALLER Orders Only [facility] [address] [place] [address] [place] 01/25/2025 9:35 AM CDT Office Visit [facility] [address] [facility] [place] [address] Fernando Alex MD [address] [facility] [place] [address] Health Maintenance Due Date Last Done Comments [...] Diagnosis Comments INR,POCT Routine 11/15/2024 12:21 PM CERAMIC TILE INSTALLER Bilateral pulmonary embolism (HC) Anticoagulation monitoring, INR range 2-3 INR,POCT Routine 10/26/2024 10:14 AM CERAMIC TILE INSTALLER Bilateral pulmonary embolism (HC) Anticoagulation monitoring, INR range 2-3 HEMOGLOBIN A1C MONITORING (POCT) Routine 10/20/2024 9:07 AM CERAMIC TILE INSTALLER Type 2 diabetes mellitus without complication, without long-term current use of insulin (HC) VITAMIN B12 Routine 10/20/2024 9:06 AM CERAMIC TILE INSTALLER Chronic GERD LIPID PANEL W REFLEX MEASURED LDL Routine 10/20/2024 9:06 AM CERAMIC TILE INSTALLER Other hyperlipidemia BASIC METABOLIC PANEL Routine 10/20/2024 9:06 AM CERAMIC TILE INSTALLER Essential hypertension PROTIME-INR Routine 10/20/2024 9:05 AM CERAMIC TILE INSTALLER Bilateral pulmonary embolism (HC) Anticoagulation monitoring, INR range 2-3 INR,POCT Routine 09/10/2024 7:54 AM CDT Bilateral pulmonary embolism (HC) Anticoagulation monitoring, INR range 2-3 from Last 3 Months Results * (ABNORMAL) INR - POCT [88764.2] - Standing Order (11/15/2024 12:21 PM CERAMIC TILE INSTALLER) Only the most recent of3 resultswithin the time period is included. INR 2.4(H) ratio [facility] Comment: INRs >2.9 may be falsely elevated [...] PROTHROMBIN TIMEP 28.7(H) 10.5 - 13.1 sec [facility] Comment: Point of care fingerstick Prothrombin Time/INR results may vary from venous Prothrombin Time/INR methodologies. Any results exhibiting inconsistency with the patient's clinical status should be repeated using a venous Prothrombin Time/INR method. Blood BLOOD SPECIMEN / Unknown 11/15/2024 12:21 PM CERAMIC TILE INSTALLER 11/15/2024 12:22 PM CERAMIC TILE INSTALLER us Fernando Alex MD LABORATORY Final Resu lt [facility] [address] [place] [address], [facility] [address] [place] [address] * (ABNORMAL) HEMOGLOBIN A1C MONITORING POCT (10/20/2024 9:07 AM CERAMIC TILE INSTALLER) POC HEMOGLOBIN A1C 8.8(H) <6.0 % OF TOTAL HGB [facility] Comment: Any point of care results exhibiting inconsistency with the patient's clinical status should be repeated using a different testing method. Blood BLOOD SPECIMEN / Unknown 10/20/2024 9:07 AM CERAMIC TILE INSTALLER 10/20/2024 9:08 AM CERAMIC TILE INSTALLER us Fernando Alex MD CHEMISTRY Final Resu lt [facility] [address] [place] [address], [facility] [address] [place] [address] * LIPID PANEL W REFLEX MEASURED LDL (10/20/2024 9:06 AM CERAMIC TILE INSTALLER) CHOLESTEROL, TOTAL 145 <200 mg/dL [facility] [...] LDL-C. Edward MATT et al. SHAYNE. 2013;310(19): 9803-1580 (http://education.[employer]elph[employer] Mobile.IID/faq/VZS695) CHOL/HDLC RATIO 2.8 <5.0 (calc) [facility] NON HDL CHOLESTEROL 93 <130 mg/dL (calc) [facility] Comment: For patients with diabetes plus 1 major ASCVD risk factor, treating to a non-HDL-C goal of <100 mg/dL (LDL-C of <70 mg/dL) is considered a therapeutic option. Blood BLOOD SPECIMEN / Unknown 10/20/2024 9:06 AM CERAMIC TILE INSTALLER 10/20/2024 9:07 AM CERAMIC TILE INSTALLER Fernando Alex MD CHEMISTRY Final Resu lt [employer] [facility] [address] [place] [address], [facility] [address] [place] [address] * VITAMIN B12 (10/20/2024 9:06 AM CERAMIC TILE INSTALLER) [facility] VITAMIN B12 534 200 - 1,100 pg/mL [facility] Blood BLOOD SPECIMEN / Unknown 10/20/2024 9:06 AM CERAMIC TILE INSTALLER 10/20/2024 9:07 AM CERAMIC TILE INSTALLER Fernando Alex MD CHEMISTRY Final Resu lt Performing Organization Address City/[facility]/ZIP Co de Phone Number [employer] [facility] [address] [place] [phone], [facility] [address] [place] [address] * (ABNORMAL) BASIC METABOLIC PANEL (10/20/2024 9:06 AM CERAMIC TILE INSTALLER) Pathologist [facility] GLUCOSE 190(H) 65 - 99 mg/dL [facility] Comment: Fasting reference interval For someone without known diabetes, a glucose value >125 mg/dL indicates that they may have diabetes and this should be confirmed with a follow-up test. UREA NITROGEN (BUN) 32(H) 7 - 25 mg/dL [facility] CREATININE 1.28(H) 0.70 - 1.22 mg/dL [facility] EGFR 55(L) > OR = 60 mL/min/1.7 3m2 [facility] BUN/CREATININE RATIO 25(H) 6 - 22 (calc) [facility] SODIUM 139 135 - 146 [...] BLOOD SPECIMEN / Unknown 10/20/2024 9:06 AM CERAMIC TILE INSTALLER 10/20/2024 9:07 AM CERAMIC TILE INSTALLER us Fernando Alex MD CHEMISTRY Final Resu lt [employer] [facility] [address] [place] [address], [facility] [place] [address] [place] [address] * (ABNORMAL) PROTIME-INR [[id number]] - Standing Order (10/20/2024 9:05 AM CERAMIC TILE INSTALLER) INR 4.2(H) <1.3 10/20/2024 2:01 PM [facility] PROTIME 48.5(H) 10.6 - 12.4 sec 10/20/2024 2:01 PM CERAMIC TILE INSTALLER [facility] Blood BLOOD SPECIMEN / Unknown [facility] / Unknown 10/20/2024 9:05 AM CERAMIC TILE INSTALLER 10/20/2024 9:05 AM CERAMIC TILE INSTALLER Narrative [facility] - 10/20/2024 2:01 PM CERAMIC TILE INSTALLER Therapeutic Range 2.0-3.0 for most anticoagulated patients [...] Fernando Alex MD HEMATOLOGY Final Resu lt [facility] [address] [place] [address], from Last 3 Months Insurance MEDICARE PB ONLY MEDICARE PART B HB ONLY [employer] [place] [address] [facility] Care Teams Computer Systems Security Analyst Relationship Specialty Start Date End Date Fernando Alex MD [address] [place] [address] PCP - General Family Practice 07/25/17
== END 2024-12-11 15:34 | disposition home or self-care (01) ==
PROVIDERS: Emergency Provider Emergency Medicine Emergency Medical Services; PCP Family Medicine
DX: J10.1 Influenza due to other identified influenza virus with other respiratory manifestations (principal)
CPT/HCPCS: 36415; 71046; 85025; 87631; 93005; 99284

== ENCOUNTER 2025-03-28 11:54 | Emergency (ER) | payer MEDICARE, OTHER, SELFPAY ==
--- OUTSIDE RECORDS SUMMARY | 2025-03-28 11:57 | XMS_ITS ---
Author Organization [facility] [place] Care Team Providers Care Occupational Therapy Technician Name Role Phone Melendez, Luiza Unavailable Unavailable Otoniel Sewell Unavailable Unavailable Allergies and adverse reactions No Known Allergies Care Team Name Role Address Phone Organization Dates Otoniel Sewell [facility] [employer] [address] [place] [address], [facility] (Office): [facility] 07/22/2019 - 07/30/2019 Luiza [place] [address], [place] (Office): : [facility] 07/22/2019 - 07/30/2019 Immunizations Immunization Status Vaccine Details Vaccine Code CodeSystem Date Notes TB 2 Step Mantoux Skin Test completed tuberculin skin test; unspecified formulation lotNumber: [id number] expiry: 09/14/2018 Mfg: sanofi pasteur limited Given 0.1 ml Right Forearm intradermally Step 2 of Multi-step with next step required 98 CVX created date: 06/07/2017 consent date: 06/07/2017 administer ed date: 06/07/2017 Results read on 06/09/17 at 1215 by MARIAM Moon TB 2 Step Mantoux Skin Test completed tuberculin skin test; unspecified formulation lotNumber: [id number] expiry: 09/14/2018 Mfg: sanofi pasteur Given 0.1 ml Right Forearm intradermally Step 1 of Multi-step with next step required 98 CVX created date: 05/24/2017 consent date: 05/24/2017 administer ed date: 05/24/2017 Educated by Opal Velázquez RN on 05/24/2017 Read at 2245 by this commercial underwriter and was found to be negative with 0mm induration. Custom Influenza completed created date: 05/23/2017 administer ed date: 12/10/2016 PPSV23, Pneumovax 23 completed created date: 05/23/2017 administer ed date: 11/19/2005 PCV13, [id number] completed created date: 05/23/2017 administer ed date: 12/10/2016 QuantiFERON-TB Gold completed no vaccine administered 998 CVX created date: 07/26/2019 consent date: 07/26/2019 administer ed date: 07/26/2019 Educated by Luiza Sheikh RN on 07/22/2019 TB Gold, Quantiferon Plus negative Mental Status Section Date Assessment Total Score Description 07/30/2019 BIMS 15 cognitively int act CAM 0 No delirium ind icated PHQ-9 06 mild depression 07/28/2019 BIMS 15 cognitively int act CAM 0 No delirium ind icated PHQ-9 06 mild depression Problems Problem # Description Date of onset Resolved Date Code CodeSystem Concern Status 1 BENIGN PROSTATIC HYPERPLASIA WITH LOWER URINARY TRACT SYMPTOMS 07/22/[address] active 2 DIFFICULTY IN WALKING, NOT ELSEWHERE CLASSIFIED 07/22/[address] active 3 ENCOUNTER FOR SURGICAL AFTERCARE FOLLOWING SURGERY ON THE DIGESTIVE SYSTEM 07/22/[address] active 4 ENCOUNTER FOR THERAPEUTIC DRUG LEVEL MONITORING 07/22/[address] active 5 HYPOKALEMIA 05/26/2017 07/17/[address] com pleted 6 DIFFICULTY IN WALKING, NOT ELSEWHERE CLASSIFIED 05/23/2017 07/17/[address] completed 7 DISPLACED FRACTURE OF BASE OF NECK OF LEFT FEMUR, SUBSEQUENT ENCOUNTER FOR CLOSED FRACTURE WITH ROUTINE HEALING 05/23/2017 07/17/[address] completed 8 ESSENTIAL (PRIMARY) HYPERTENSION 05/23/[address] active 9 HISTORY OF FALLING 05/23/2017 07/17/[address] completed 10 HYPERLIPIDEMIA, UNSPECIFIED 05/23/[address] active 11 JAIL (CURRENT) USE OF ANTICOAGULANTS 05/23/[address] active 12 MUSCLE WEAKNESS (GENERALIZED) 05/23/2017 07/17/[address] completed 13 OTHER JAIL (CURRENT) DRUG THERAPY 05/23/[address] active 14 PERSONAL HISTORY OF PULMONARY EMBOLISM 05/23/[address] active 15 POLYOSTEOARTHRITIS, UNSPECIFIED 05/23/[address] active 16 TYPE 2 DIABETES MELLITUS WITHOUT COMPLICATIONS 05/23/[address] active 17 UNSPECIFIED GLAUCOMA 05/23/[address] active Reason for Referral No Reasons for Referral Entered Social History Social History Observation Description Start Date End Date Code Code System Current Smoking Status Tobacco smoking consumption unknown 716671703 SNOMED CT Sex Assigned At Male 1940 62104-4 [facility] Gender Identity Vital Signs Code Code System Vitals Name Values and Units Timing Information 08869-8 [facility] Weight Gmgsg=414.4 Units=Lbs 07/2019 8462-4 [facility] Blood Pressure-Diastolic Value=68 Un its=mmHg 07/26/2019 8480-6 [facility] Blood Pressure-Systolic Zukuv=209 Un its=mmHg 07/26/2019 8310-5 [facility] Body Temperature Value=97.5 Units= F 07/26/2019 8867-4 [facility] Heart rate Value=55.0 Units=/min 07/2019 54198-6 [facility] O2 % BldC Oximetry Value=97.0 Units= % 07/26/2019 9279-1 [facility] Respiratory Rate Value=18.0 Units=/m in 07/26/2019 8302-2 [facility] Height Value=65.0 Units=Inches 07/22/2019 82074-9 [facility] Pain Level Value=0.0 07/17/2017
--- OUTSIDE RECORDS SUMMARY | 2025-03-28 11:57 | XMS_ITS | Clinical Summary ---
Author Organization [facility] Address [address] [place] [id number] Care Team Providers Care Rn Manager Name Role Phone Fernando Alex MD Primary Care Provider [phone]- [phone] Allergies No known active allergies Medications brimonidine (ALPHAGAN) 0.2 % ophthalmic solution Place 1 Drop into left eye 2 times daily. 12/12/19 21 Active tamsulosin 0.4 mg capsuleIndications :BPH without urinary obstruction Take 1 Capsule (0.4 mg) by mouth once daily after a meal. 90 Capsule 3 10/26/20 24 Active lisinopriL (PRINIVIL; ZESTRIL) [...] daily. 90 Tablet 3 10/26/20 24 Active metFORMIN (GLUCOPHAGE XR) 500 mg Extended-Release tabletIndications: Type 2 diabetes mellitus without complication, without long-term current use of insulin (HC) Take 3 Tablets (1,500 mg) by mouth once daily. Take in the morning. 270 Tablet 3 01/26/20 25 Active warfarin 2.5 mg tabletIndications: Bilateral pulmonary embolism (HC),Anticoagulati on monitoring, INR range 2-3 TAKE 1 TABLET (2.5MG) BY MOUTH EVERY -- SAT AND 1/2 TABLET (1.25MG) ON THE REST OF DAYS IN THE EVENING OR DIRECTED 68 Tablet 03/02/20 25 Active warfarin (COUMADIN) 2.5 mg tabletIndications: Bilateral pulmonary embolism (HC),Anticoagulati on monitoring, INR range 2-3 Take by mouth 2.5 mg (2.5 mg x 1) every Tue, Leena, Sat; 1.25 mg (2.5 mg x 0.5) all other days in the evening OR as directed 12/16/19 25 025 Discontinued Active Problems Problem Noted Date [...] Encounters Date Type Department Care Team Description 03/28/2025 Nurse Triage [facility] [address] [place] [id number] Fernando Alex MD Dizziness 03/25/2025 Telephone [facility] [address] [id number] Fernando Alex MD Anticoagulation (Annual re-enrollment /) 03/17/2025 Telephone [facility] [address] [place] [address] Fernando Alex MD Results 03/08/2025 8:30 AM CDT Orders Only [facility] [address] [place] [address] [place] [facility] 03/08/2025 Anticoagulation (warfarin) [facility] [address] [facility] [address] 1[facility] [place] [facility] Anticoagulation (lab) 03/08/2025 Travel 03/02/2025 Refill [facility] [address] [facility] [address] Fernando Alex MD Refill Request (Warfarin) 02/08/2025 10:30 AM CDT Orders Only [facility] [place] [address] [place] [facility] 02/08/2025 Anticoagulation (warfarin) [facility] [address] [facility] [address] 1, [place] [facility] Anticoagulation 02/08/2025 Travel 01/26/2025 Orders Only [facility] [place] [address] [place] [address] Fernando Alex MD 1 scan: (1-Ord) NFLD-EKG-01/25/25 01/25/2025 9:35 AM CDT Office Visit [facility] [address] Fernando Alex MD Diabetes 01/25/2025 9:00 AM CDT Office Visit [address] [place] [address] 01/25/2025 Anticoagulation (warfarin) [facility] [address] [facility] [address] 1, [place] Anticoagulation 01/25/2025 Travel 01/18/2025 9:30 AM ROVING WEIGHT GAUGER Orders Only [facility] [address] [facility] [address] [place] Sleep Problem 01/18/2025 Anticoagulation (warfarin) [facility] [address] [place] [address] 1, [place] [facility] Anticoagulation 01/18/2025 Travel 12/29/2024 3:00 PM ROVING WEIGHT GAUGER Orders Only [facility] [address] [place] [address] Lab[place] [facility] 12/29/2024 Anticoagulation (warfarin) [facility] [address] [place] [address] 1, [place] [facility] Anticoagulation 12/29/2024 Travel from Last 3 Months Immunizations Immunization Administration Dates Next Due COVID-19 VACCINE SPIKEVAX (M ODERNA 50MCG/0.5ML) 12YO+ PFS 03/05/2024 COVID-19 vaccine (Pfizer-Bio NTech 30mcg/0.3mL) 12YO+ BIVALENT PF, MDV 12/20/2022 COVID-19 vaccine (Pfizer-Bio NTech 30mcg/0.3mL) 12YO+ ANDRES-SUCROSE PF, MDV 12/24/2021 [...] on file Legal Sex Male 5:25 AM ROVING WEIGHT GAUGER Gender Identity Not on file Sexual Orientation Not on file Occupation Industry Job Start Date Job End Date Retired Not on file Not on file Not on file Obstetrics History Last Filed Vital Signs Vital Sign Reading Time Taken Comments Blood Pressure 127/64 01/25/2025 9:38 AM CDT Pulse 48 01/25/2025 10:08 AM CDT Temperature 36.2 C (97.2 F) 10/26/2024 9:13 AM ROVING WEIGHT GAUGER Respiratory Rate 16 09/11/2022 2:52 PM CDT Oxygen Saturation 99% 01/25/2025 9:38 AM CDT Inhaled Oxygen Concentration - - Weight 77.6 kg (171 lb) 01/25/2025 9:38 AM CDT Height 165.3 cm (5' 5.08) 03/05/2024 9:14 AM CD T Body Mass Index 28.39 03/05/2024 9:14 AM CDT Plan of Treatment Upcoming Encounters Date Type Department Care Team (Late st Contact Info) Description 04/25/2025 9:00 AM CDT Orders Only [facility] [address] [place] [address] [place], [place] 04/27/2025 9:15 AM CDT Office Visit [facility] [address] [place] [address] Fernando Alex MD [address] [place] [address] 06/21/2025 2:30 PM CDT Office Visit [facility] [address] [place] [address] Chad Hackett MD [address] [place] [address] Health Maintenance Due Date Last Done Comments Zoster (shingles) series for age 50+ (1 of 2) 1988 RSV vaccine for adults or (1 - 1-dose 75+ series) 2013 COVID-19 vaccine series ( season) 2024 03/05/2024, 12/20/2022, 05/17/2022, Additional history [...] Completed 7, 11/19/2005 Tdap Completed 03/14/2021 Influenza Vaccine Completed 10/26/2024, , 12/20/2022, Additional history exists Procedures Procedure Name Priority Date/Time Associated Diagnosis Comments INR,POCT Routine 03/08/2025 9:04 AM CDT Bilateral pulmonary embolism (HC) Anticoagulation monitoring, INR range 2-3 INR,POCT Routine 02/08/2025 10:22 AM CDT Bilateral pulmonary embolism (HC) Anticoagulation monitoring, INR range 2-3 EKG 12 LEAD Routine 01/26/2025 10:23 AM CDT Bradycardia [place] READING EKG - NO CHARGE, COMP ONLY Routine 01/26/2025 10:22 AM CDT Bradycardia INR,POCT Routine 01/25/2025 10:20 AM CDT Bilateral pulmonary embolism (HC) Anticoagulation monitoring, INR range 2-3 EXTENDED HOLTER Routine 01/25/2025 Bradycardia HEMOGLOBIN A1C Routine 01/18/2025 9:23 AM ROVING WEIGHT GAUGER Type 2 diabetes mellitus without complication, without long-term current use of insulin (HC) BASIC METABOLIC PANEL Routine 01/18/2025 9:23 AM ROVING WEIGHT GAUGER Type 2 diabetes mellitus without complication, without long-term current use of insulin (HC) LIPID PANEL W REFLEX MEASURED LDL Routine 01/18/2025 9:23 AM ROVING WEIGHT GAUGER Type 2 diabetes mellitus without complication, without long-term current use of insulin (HC) URINE ALBUMIN TO CREATININE RATIO, RANDOM Routine 01/18/2025 9:22 AM ROVING WEIGHT GAUGER Type 2 diabetes mellitus without complication, without long-term current use of insulin (HC) PROTIME-INR Routine 01/18/2025 9:22 AM ROVING WEIGHT GAUGER Bilateral pulmonary embolism (HC) Anticoagulation monitoring, INR range 2-3 INR,POCT Routine 12/29/2024 2:14 PM ROVING WEIGHT GAUGER Bilateral pulmonary embolism (HC) Anticoagulation monitoring, INR range 2-3 from Last 3 Months Results * (ABNORMAL) INR - POCT [[id number]] - Standing Order (03/08/2025 9:04 AM CDT) Only the most recent of4 resultswithin the time period is included. INR 2.0(H) ratio [facility] Comment: INRs >2.9 may be falsely elevated in patients receiving either unfractionated Heparin or Low Molecular Weight Heparin. Follow up testing in a hospital laboratory may be helpful if clinically indicated. INR results of > or = 5.0 should be verified using the standard venipuncture procedure. Reference Range 0.9-1.1 Moderate-intensity Warfarin Therapy 2.0-3.0 Higher-intensity Warfarin Therapy 3.0-4.0 PROTHROMBIN TIMEP 24.4(H) 10.5 - 13.1 sec [facility] Comment: Point of care fingerstick Prothrombin Time/INR results may vary from venous Prothrombin Time/INR methodologies. Any results exhibiting inconsistency with the patient's clinical status should be repeated using a venous Prothrombin Time/INR method. Blood BLOOD SPECIMEN / Unknown 03/08/2025 9:04 AM CDT 03/08/2025 9:05 AM CDT Fernando Alex MD LABORATORY Final Resu lt [facility] [address] [place] [address], [facility] [address] [place] [address] * EKG 12 LEAD (01/26/2025 10:23 AM CDT) us Fernando Alex MD EKG ORD Final Resu lt * [place] READING EKG - NO CHARGE, COMP ONLY (01/26/2025 10:22 AM CDT) us Fernando Alex MD PB - PROVIDER READINGS Fin al Result * EXTENDED HOLTER (01/25/2025) 01/25/2025 Narrative Tori Baez MD - 03/03/2025 12:00 AM CDT Agree with Findings. Only 2+ days of data (out of 14) apparently due to poor connection of ZioPatch. Frequent PACs (10.6%). HR range 37-103 during sinus rhythm. Brief runs of PSVT noted incidentally. Please see scan document for full report. Signed By Tori Baez MD Procedure Note Tori Baez MD - 03/03/2025 Agree with Findings. Only 2+ days of data (out of 14) apparently due topoor connection of ZioPatch. Frequent PACs (10.6%). HR range 37-103during sinus rhythm. Brief runs of PSVT noted incidentally. Please see scan document for full report. Signed By Tori Baez MD us Fernando Alex MD CARDIAC SERVICES ORD Final Result * (ABNORMAL) HEMOGLOBIN A1C (01/18/2025 9:23 AM ROVING WEIGHT GAUGER) HEMOGLOBIN A1C 9.1(H) <5.7 % of total Hgb [facility] Comment: For someone without known diabetes, a hemoglobin A1c value of 6.5% or greater indicates that they may have diabetes and this should be confirmed with a follow-up test. For someone with known diabetes, a value <7% indicates that their diabetes is well controlled and a value greater than or equal to 7% indicates suboptimal control. A1c targets should be individualized based on duration of diabetes, age, comorbid conditions, and other considerations. Currently, no consensus exists regarding use of hemoglobin A1c for diagnosis of diabetes for children. Blood BLOOD SPECIMEN / Unknown 01/18/2025 9:23 AM ROVING WEIGHT GAUGER 01/18/2025 9:24 AM ROVING WEIGHT GAUGER Fernando Alex MD CHEMISTRY Final Resu lt Performing Organization Address [facility]/ZIP Co de Phone Number [facility] [employer] [facility] [address] [place] [address], [place] [phone] [facility] [address] [place] [address] * LIPID PANEL W REFLEX MEASURED LDL (01/18/2025 9:23 AM ROVING WEIGHT GAUGER) CHOLESTEROL, TOTAL 143 <200 mg/dL [facility] HDL CHOLESTEROL 52 > OR = 40 mg/dL [facility] TRIGLYCERIDES 109 <150 mg/dL [facility] LDL-CHOLESTEROL 72 mg/dL (calc) [facility] Comment: Reference range: <100 Desirable range <100 mg/dL for primary prevention; <70 mg/dL for patients with CHD or diabetic patients with > or = 2 CHD risk factors. LDL-C is now calculated using the Edward-Lindy calculation, which is a validated novel method providing better accuracy than the Friedewald equation in the estimation of LDL-C. Edward SS et al. SHAYNE. 2013;310(19): 0283-6470 (http://education.Xtium.[employer]/faq/OXM710) CHOL/HDLC RATIO 2.8 <5.0 (calc) [facility] NON HDL CHOLESTEROL 91 <130 mg/dL (calc) [facility] Comment: For patients with diabetes plus 1 major ASCVD risk factor, treating to a non-HDL-C goal of <100 mg/dL (LDL-C of <70 mg/dL) is considered a therapeutic option. Blood BLOOD SPECIMEN / Unknown 01/18/2025 9:23 AM ROVING WEIGHT GAUGER 01/18/2025 9:24 AM ROVING WEIGHT GAUGER Fernando Alex MD CHEMISTRY Final Resu lt Performing Organization Address [facility]/ZIP Co de Phone Number [facility] [employer] [address] [place] [address], [place] [phone] [facility] [address] [place] [address] * (ABNORMAL) BASIC METABOLIC PANEL (01/18/2025 9:23 AM ROVING WEIGHT GAUGER) [facility] GLUCOSE 142(H) 65 - 99 mg/dL [facility] Comment: Fasting reference interval For someone without known diabetes, a glucose value >125 mg/dL indicates that they may have diabetes and this should be confirmed with a follow-up test. UREA NITROGEN (BUN) 36(H) 7 - 25 mg/dL [facility] CREATININE 1.29(H) 0.70 - 1.22 mg/dL [facility] EGFR 54(L) > OR = 60 mL/min/1.7 3m2 [facility] BUN/CREATININE RATIO 28(H) 6 - 22 (calc) [facility] SODIUM 139 135 - 146 mmol/L [facility] POTASSIUM 4.9 3.5 - 5.3 mmol/L [facility] CHLORIDE 102 98 - 110 mmol/L [facility] CARBON DIOXIDE 25 20 - 32 mmol/L [facility] ELECTROLYTE BALANCE 12 7 - 17 mmol/L (calc) [facility] CALCIUM 9.5 8.6 - 10.3 mg/dL [facility] Blood BLOOD SPECIMEN / Unknown 01/18/2025 9:23 AM ROVING WEIGHT GAUGER 01/18/2025 9:24 AM ROVING WEIGHT GAUGER us Fernando Alex MD CHEMISTRY Final Resu lt [employer] [facility] [address] [place] [address], [place] [phone] [facility] [address] [place] [address] * URINE ALBUMIN TO CREATININE RATIO, RANDOM (01/18/2025 9:22 AM ROVING WEIGHT GAUGER) ALB RAND URINE <12.0 mg/L 01/18/2025 6:44 PM ROVING WEIGHT GAUGER [facility] CREATININE,URINE 0.68 g/L 01/19/20 6:44 PM ROVING WEIGHT GAUGER [facility] ALBUMIN TO CREATININE RATIO,RAND UR 01/18/2025 6:44 PM ROVING WEIGHT GAUGER [facility] Comment:Urine Albumin below measurement range, unable to calculate. Urine URINE SPECIMEN / Unknown Non-Blood / Unknown 01/18/2025 9:22 AM ROVING WEIGHT GAUGER 01/18/2025 9:22 AM ROVING WEIGHT GAUGER Narrative [facility] - 01/18/2025 6:44 PM ROVING WEIGHT GAUGER If Albumin to Creatinine Ratio is elevated, consider the following: Elevations seen with incipient nephropathy associated with diabetes mellitus or hypertension. Stress, exercise,hematuria, and urinary tract infection may also produce elevated results. If clinically indicated, confirm with 24 Hour Albumin to Creatinine Ratio. Fernando Alex MD URINE Final Resu lt [facility] [address] [place] [address], [place] * (ABNORMAL) PROTIME-INR [[id number]] - Standing Order (01/18/2025 9:22 AM ROVING WEIGHT GAUGER) INR 1.8(H) <1.3 01/18/2025 2:59 PM ROVING WEIGHT GAUGER [facility] PROTIME 21.2(H) 10.6 - 12.4 sec 01/18/2025 2:59 PM ROVING WEIGHT GAUGER [facility] Blood BLOOD SPECIMEN / Unknown [facility] / Unknown 01/18/2025 9:22 AM ROVING WEIGHT GAUGER 01/18/2025 9:[address] [facility] - 01/18/2025 2:59 PM ROVING WEIGHT GAUGER Therapeutic Range 2.0-3.0 for most anticoagulated patients [...] Fernando Alex MD HEMATOLOGY Final Resu lt [facility] [address] [place] [address], from Last 3 Months Insurance MEDICARE PB ONLY MEDICARE PART B HB ONLY [place] [id number] [facility] [employer] Care Teams Rn Manager Relationship Specialty Start Date End Date Fernando Alex MD [address] [place] [address] PCP - General Family Practice 07/25/17
[2025-03-28 11:58] VITALS: BP 126/67; PULSE 55; RESP 18; TEMP 36.7; O2SAT 97; BMI 26.6
--- NOTE | 2025-03-28 12:10 | ED_ITS ---
HPI - General Adult General Time Seen by Provider: 12:14 Date Seen: 03/28/25 Stated complaint: got sent- from clinic- dizz-BP Time Seen by Provider: 03/28/25 12:10 Source: patient and RN notes reviewed Mode of arrival: ambulatory Limitations: no limitations History of Present Illness HPI narrative: This 84-year-old male was referred from [facility] today. He walked into the clinic requesting an INR and blood pressure check and they did not have any appointments. Patient notes about 2 weeks ago his INR was 2. He cannot tell me why he is on anticoagulation. He is not aware if it is rhythm disturbance, history of stroke. He states he does get routine INR blood work though and takes whenever dose they tell him to take. He was bending over pic lillian up cans and doing Maame I clean today. He started to feel dizzy or lightheaded bending over, he had no chest pain, no neurologic changes, no headache. He does note that he sometimes will feel dizzy or lightheaded when he bends over. It was not a sense of the room spinning or any vertigo symptoms. He thought maybe his blood was getting too thin, needed an INR check. He has not noted any palpitations or any sense of heart rhythm disturbance. Symptoms lasted minutes or so, completely resolved now. Patient drove himself here. Related Data Home Medications ?Medication ?Instructions ?Recorded ?Confirmed atorvastatin 20 mg tablet mg 01/11/23 08/21/23 lisinopril 5 mg tablet mg 01/11/23 08/21/23 omeprazole 20 mg capsule,delayed mg 01/11/23 08/21/23 release tamsulosin 0.4 mg capsule mg PO 01/11/23 08/21/23 warfarin 2.5 mg tablet mg 01/11/23 08/21/23 Previous Rx's ?Medication ?Instructions ?Recorded bacitracin 500 unit/gram topical 1 applic topical TID #14 grams 08/21/23 ointment Allergies Allergy/AdvReac Type Severity Reaction Status Date / Time No Known Drug Allergies Allergy Verified 08/21/23 12:54 Review of Systems Status of ROS: Reports: 6 or more systems reviewed and unremarkable except as noted in History and below PFSH PFSH Social History Smoking Status: Never smoker How often do you have a drink containing alcohol: never AUDIT-C Alcohol total score: 0 Non-prescribed substance use: denies use Exam Const: Vital Signs, click to edit/add: Vital Signs - 24 hr 03/28/25 11:58 03/28/25 12:25 Temperature 98.1 F Pulse Rate [Pulse Oximeter] 55 L Respiratory Rate 18 Blood Pressure [Ri ght Upper Arm] 126/67 Blood Pressure [or thostatic lying] 131/61 Blood Pressure [or thostatic sitting] 106/65 Blood Pressure [or thostatic standing ] 106/64 Pulse Oximetry 97 Oxygen Delivery Me thod Room Air This 84-year-old male is alert, interactive, no apparent distress. Sitting up on the edge of the bed. Pupils equal round reactive, sclerae clear, extraocular muscles intact. Symmetrical facial function, speech is normal. Neck is supple, no adenopathy, no thyromegaly masses or nodules, no jugular venous distension. Lungs are clear, good air entry, no wheezing or crackles. CV regular rate and rhythm, no murmur, normal S1-S2, no S3-S4. Abdomen is soft, nontender, nondistended. No pitting edema. Patient was ambulatory into the ED of his own accord, no gait disturbance. Strength is grossly normal throughout, no tremors, normal light touch sensation. His vitals lying were blood pressure 131/67, heart rate 47. Sitting his vitals were 106/65, pulse 53. Standing his blood pressure went to 106/64 and pulse up to 56. Patient was reportedly asymptomatic. He does have some orthostatic changes with his position changes most notable from lying to sitting. Documenting provider has reviewed patient's vital signs: yes Course Course ED Course: Patient is asymptomatic at this time, certainly sounds like this might have just been orthostatic changes, does not sound to be consistent with any cerebrovascular accident. Will look at an EKG, some basic labs including his INR for him. Will have nursing staff to orthostatic vitals. Reevaluation(s) Reevaluation #1: Patient did request to leave prior to his INR being done. He requested we call with results. Did agree to do this, he was asymptomatic on presentation. Time of Reevaluation #2: 15:13 Reevaluation #2: Left message on patient's answering machine that his INR was low at 1.48. We will fax results to Clinic, his primary is Dr. Alex. Vital Signs Vital signs: Initial Vital Signs Temperature 98.1 F 03/28/25 11:58 Temperature Source Temporal Artery Scan 03/28/25 11:58 Pulse Rate 55 L 03/28/25 11:58 Respiratory Rate 18 03/28/25 11:58 Blood Pressure 126/67 03/28/25 11:58 Blood Pressure Mean 86 03/28/25 11:58 Blood Pressure Position Sitting 03/28/25 11:58 Pulse Oximetry 97 03/28/25 11:58 Oxygen Delivery Method Room Air 03/28/25 11:58 Vital Signs Temperature 98.1 F 03/28/25 11:58 Pulse Rate 55 L 03/28/25 11:58 Respiratory Rate 18 03/28/25 11:58 Blood Pressure 126/67 03/28/25 11:58 Pulse Oximetry 97 03/28/25 11:58 Oxygen Delivery Method Room Air 03/28/25 11:58 Temperature 98.1 F 03/28/25 11:58 Pulse Rate 55 L 03/28/25 11:58 Respiratory Rate 18 03/28/25 11:58 Blood Pressure 131/61 03/28/25 12:25 Pulse Oximetry 97 03/28/25 11:58 Oxygen Delivery Method Room Air 03/28/25 11:58 Medical Decision Making Lab Data Lab results reviewed: Yes I reviewed the patient's lab results Labs: Lab Results 03/28/25 Range/Units 12:40 WBC 9.21 (4.50-11.00) K/uL RBC 4.61 (4.30-5.90) m/uL Hgb 14.1 (13.5-17.5) gm/dL Hct 43.6 (37.0-53.0) % MCV 95 (80-100) fL MCH 31 (26-34) pg MCHC 32 (32-36) gm/dL RDW Coeff of Rae 12.5 (11.5-15.5) % Plt Count 215 (140-440) K/uL Neut % (Auto) 72.9 H (42.0-72.0) % Lymph % (Auto) 16.0 L (20-44) % [place] % (Auto) 7.7 (0.0-11.0) % Eos % (Auto) 2.9 (0.0-7.0) % Baso % (Auto) 0.3 (0.0-3.0) % Neut # (Auto) 6.70 (1.7-7.0) K/uL Lymph # (Auto) 1.50 (0.90-2.90) K/uL [place] # (Auto) 0.70 (0.00-0.90) K/UL Eos # (Auto) 0.27 (0.00-0.50) K/uL Baso # (Auto) 0.03 (0.00-0.30) K/uL Abs Immat Gran (auto) 0.02 (0.00-0.30) K/uL Imm/Tot Granulo (auto) 0.2 % INR 1.48 H (0.91-1.10) Sodium 138 (135-149) mmol/L Potassium 4.6 (3.6-5.1) mmol/L Chloride 103 (96-114) mmol/L Carbon Dioxide 25 (20-32) mmol/L Anion Gap 10 (7-15) mEq/L BUN 35 H (7-30) mg/dL Creatinine 1.3 (0.5-1.5) mg/dL Estimated Creat Clear 35.48 Estimated GFR 54 ml/min Glucose 109 (60-115) mg/dL Calcium 9.6 (8.4-10.6) mg/dL ECG Data Attestation: I personally reviewed and interpreted this ECG as follows: (Sinus bradycardia with PAC. Rate 51 beats per minute. No ischemic change, no infarct.) Prior ECG tracings: not available for review Discharge Plan Discharge Clinical Impression: Chronic anticoagulation, Orthostatic hypotension Patient Disposition: Home, Self-Care Condition: Stable Instructions: Hypotension (ED) Additional Instructions: Your blood pressure does drop with position changes, this is called orthostatic hypotension. Taking position changes slowly and waiting for few minutes before you move can help. I do recommend getting a follow-up with your primary care provider in clinic, contact them to get a scheduled appointment. We will call you with your protime result as requested. Prescriptions: No Action bacitracin 500 unit/gram ointment 1 applic topical TID Qty: 14 1RF atorvastatin 20 mg tablet Patient Comments: TAKE 1 TABLET BY MOUTH ONCE DAILY. warfarin 2.5 mg tablet Patient Comments: TAKE ONE-HALF TABLET (2.5 MG) BY MOUTH EVERY MON, WED, FRI; 1 TABLET (2.5 MG) ALL OTHER DAYS IN THE EVENING OR DIRECTED tamsulosin 0.4 mg capsule PO Patient Comments: TAKE ONE CAPSULE BY MOUTH ONCE DAILY AFTER A MEAL omeprazole 20 mg capsule,delayed release(DR/EC) Patient Comments: TAKE ONE CAPSULE BY MOUTH ONCE DAILY BEFORE A MEAL lisinopril 5 mg tablet Patient Comments: TAKE 1 TABLET BY MOUTH ONCE DAILY Follow Up/Referrals: Fernando Alex MD [Primary Care Provider] - Stand Alone Forms: EZ-Appsth Info Instructions
[2025-03-28 12:25] VITALS: BP 106/64; BP 106/65; BP 131/61
[2025-03-28 12:54] LABS: Basophils Absolute Auto 0.03 K/uL (0.00-0.30); Basophils Percent Auto 0.3 % (0.0-3.0); Eosinophils Absolute Auto 0.27 K/uL (0.00-0.50); Eosinophils Percent Auto 2.9 % (0.0-7.0); Hematocrit 43.6 % (37.0-53.0); Hemoglobin* 14.1 gm/dL (13.5-17.5); Immature Granulocytes Abs Auto 0.02 K/uL (0.00-0.30); Immature Granulocytes Pct Auto 0.2 %; Mean Corpuscular HGB Conc 32 gm/dL (32-36); Mean Corpuscular Hemoglobin 31 pg (26-34); Mean Corpuscular Volume 95 fL (80-100); Monocytes Percent Auto 7.7 % (0.0-11.0); Neutrophils Percent Auto 72.9 % (42.0-72.0); Platelet Count* 215 K/uL (140-440); RDW Coefficient of Variation % 12.5 % (11.5-15.5); Red Blood Count 4.61 m/uL (4.30-5.90); White Blood Count* 9.21 K/uL (4.50-11.00)
[2025-03-28 13:02] LABS: Slide Review Reflex No
--- OUTSIDE RECORDS SUMMARY | 2025-03-28 13:13 | XMS_ITS ---
Author Organization [facility] Care Team Providers Care Engineer Technician Name Role Phone Melendez, Luiza Unavailable Unavailable Otoniel Sewell Unavailable Unavailable Allergies and adverse reactions No Known Allergies Care Team Name Role Address Phone Organization Dates Otoniel Sewell [facility] Gen[facility] [address] [place] [address], [facility] (Office): [facility] 07/22/2019 - 07/30/2019 Luiza Melendez [place] [address], [place] (Office): : [facility] 07/22/2019 - 07/30/2019 Immunizations Immunization Status Vaccine Details Vaccine Code CodeSystem Date Notes TB 2 Step Mantoux Skin Test completed tuberculin skin test; unspecified formulation lotNumber: [id number] expiry: 09/14/2018 Mfg: sanofi pasteur limited Given 0.1 ml Right Forearm intradermally Step 2 of Multi-step with next step required 98 CVX created date: 06/07/2017 consent date: 06/07/2017 administer ed date: 06/07/2017 Results read on 06/09/17 at 1215 by MARIAM Moon TB 2 Step Mantoux Skin Test completed tuberculin skin test; unspecified formulation lotNumber: [id number] expiry: 09/14/2018 Mfg: sanofi pasteur Given 0.1 ml Right Forearm intradermally Step 1 of Multi-step with next step required 98 CVX created date: 05/24/2017 consent date: 05/24/2017 administer ed date: 05/24/2017 Educated by Opal Velázquez RN on 05/24/2017 Read at 2245 by this news writer and was found to be negative with 0mm induration. Custom Influenza completed created date: 05/23/2017 administer ed date: 12/10/2016 PPSV23, Pneumovax 23 completed created date: 05/23/2017 administer ed date: 11/19/2005 PCV13, [id number] completed created date: 05/23/2017 administer ed date: [...] HYPERPLASIA WITH LOWER URINARY TRACT SYMPTOMS 07/22/[address] active 2 DIFFICULTY IN WALKING, NOT ELSEWHERE CLASSIFIED 07/22/[address] active 3 ENCOUNTER FOR SURGICAL AFTERCARE FOLLOWING SURGERY ON THE DIGESTIVE SYSTEM 07/22/[address] active 4 ENCOUNTER FOR THERAPEUTIC DRUG LEVEL MONITORING 07/22/[address] active 5 HYPOKALEMIA 05/26/2017 07/17/[address] com pleted 6 DIFFICULTY IN WALKING, NOT ELSEWHERE CLASSIFIED 05/23/2017 07/17/[address] completed 7 DISPLACED FRACTURE OF BASE OF NECK OF LEFT FEMUR, SUBSEQUENT ENCOUNTER FOR CLOSED FRACTURE WITH ROUTINE HEALING 05/23/2017 07/17/[address] completed 8 ESSENTIAL (PRIMARY) HYPERTENSION 05/23/[address] active 9 HISTORY OF FALLING 05/23/2017 07/17/[address] completed 10 HYPERLIPIDEMIA, UNSPECIFIED 05/23/[address] active 11 DETENTION (CURRENT) USE OF ANTICOAGULANTS 05/23/[address] active 12 MUSCLE WEAKNESS (GENERALIZED) 05/23/2017 07/17/[address] completed 13 OTHER DETENTION (CURRENT) DRUG THERAPY 05/23/[address] active 14 PERSONAL HISTORY OF PULMONARY EMBOLISM 05/23/[address] active 15 POLYOSTEOARTHRITIS, UNSPECIFIED 05/23/[address] active 16 TYPE 2 DIABETES MELLITUS WITHOUT COMPLICATIONS 05/23/[address] active 17 UNSPECIFIED GLAUCOMA 05/23/[address] active Reason for Referral No Reasons for Referral Entered Social History Social History Observation Description Start Date End Date Code Code System Current Smoking Status Tobacco smoking consumption unknown 041508413 SNOMED CT Sex Assigned At Male 1940 77439-5 [facility] Gender Identity Vital Signs Code Code System Vitals Name Values and Units Timing Information 99277-3 [facility] Weight Yqipc=562.4 Units=Lbs 07/2019 8462-4 [facility] Blood Pressure-Diastolic Value=68 Un its=mmHg 07/26/2019 8480-6 [facility] Blood Pressure-Systolic Ewnvk=326 Un its=mmHg 07/26/2019 8310-5 [facility] Body Temperature Value=97.5 Units= F 07/26/2019 8867-4 [facility] Heart rate Value=55.0 Units=/min 07/2019 79120-9 [facility] O2 % BldC Oximetry Value=97.0 Units= % 07/26/2019 9279-1 [facility] Respiratory Rate Value=18.0 Units=/m in 07/26/2019 8302-2 [facility] Height Value=65.0 Units=Inches 07/22/2019 88633-6 [facility] Pain Level Value=0.0 07/17/2017
--- OUTSIDE RECORDS SUMMARY | 2025-03-28 13:13 | XMS_ITS | Clinical Summary ---
Author Organization [employer] [facility] [employer] Address [address] [place] [address] Care Team Providers Care Assistant Professor Of German Name Role Phone Fernando Alex MD Primary Care Provider [phone]- [phone] Allergies No known active allergies Medications brimonidine [...] Department Care Team Description 03/28/2025 Nurse Triage [facility] [address] [facility] [address] Fernando Alex MD Dizziness 03/25/2025 Telephone [facility] [address] [place] [address] Fernando Alex MD Anticoagulation (Annual re-enrollment /) 03/17/2025 Telephone [facility] [address] [place] [address] Fernando Alex MD Results 03/08/2025 8:30 AM CDT Orders Only [facility] [address] [place] [address] [facility] [place] [facility] 03/08/2025 Anticoagulation (warfarin) [facility] [address] [facility] [address] [facility] Anticoagulation (lab) 03/08/2025 Travel 03/02/2025 Refill [facility] [address] [facility] [address] Fernando Alex MD Refill Request (Warfarin) 02/08/2025 10:30 AM CDT Orders Only [facility] [place] [address] [facility] [place] [facility] 02/08/2025 Anticoagulation (warfarin) [facility] [address] [facility] [address] 1, [facility] Anticoagulation 02/08/2025 Travel 01/26/2025 Orders Only [facility] [place] [address] Fernando Alex MD 1 scan: (1-Ord) NFLD-EKG-01/25/25 01/25/2025 9:35 AM CDT Office Visit [facility] [address] [facility] [address] Fernando Alex MD Diabetes 01/25/2025 9:00 AM CDT Office Visit [address] [place] [address] 01/25/2025 Anticoagulation (warfarin) [facility] [address] [facility] [address] 1, [facility] Anticoagulation 01/25/2025 Travel 01/18/2025 9:30 AM MACHINE STRAP BUCKLER Orders Only [facility] [address] [facility] [address] [facility] Sleep Problem 01/18/2025 Anticoagulation (warfarin) [facility] [address] [place] [address] 1, [facility] Anticoagulation 01/18/2025 Travel 12/29/2024 3:00 PM MACHINE STRAP BUCKLER Orders Only [facility] [address] [place] [address] Lab[facility] [place] [facility] 12/29/2024 Anticoagulation (warfarin) [facility] [address] [place] [address] 1, [place] Anticoagulation 12/29/2024 Travel [...] on file Legal Sex Male 5:25 AM MACHINE STRAP BUCKLER Gender Identity Not on file Sexual Orientation Not on file Occupation Industry Job Start Date Job End Date Retired Not on file Not on file Not on file Obstetrics History Last Filed Vital Signs Vital Sign Reading Time Taken Comments Blood Pressure 127/64 01/25/2025 9:38 AM CDT Pulse 48 01/25/2025 10:08 AM CDT Temperature 36.2 C (97.2 F) 10/26/2024 9:13 AM MACHINE STRAP BUCKLER Respiratory Rate 16 09/11/2022 2:52 PM CDT [...] Description 04/25/2025 9:00 AM CDT Orders Only [facility] [address] [place] [address] [place], [place] 04/27/2025 9:15 AM CDT Office Visit [facility] [address] [place] [address] Fernando Alex MD [address] [place] [address] 06/21/2025 2:30 PM CDT Office Visit [facility] [address] [place] [address] Chad Hackett MD [address] [place] [address] Health Maintenance Due Date Last Done Comments [...] LEAD Routine 01/26/2025 10:23 AM CDT Bradycardia VT READING EKG - NO CHARGE, COMP ONLY Routine 01/26/2025 10:22 AM CDT Bradycardia INR,POCT Routine 01/25/2025 10:20 AM CDT Bilateral pulmonary embolism (HC) Anticoagulation monitoring, INR range 2-3 EXTENDED HOLTER Routine 01/25/2025 Bradycardia HEMOGLOBIN A1C Routine 01/18/2025 9:23 AM MACHINE STRAP BUCKLER Type 2 diabetes mellitus without complication, without long-term current use of insulin (HC) BASIC METABOLIC PANEL Routine 01/18/2025 9:23 AM MACHINE STRAP BUCKLER Type 2 diabetes mellitus without complication, without long-term current use of insulin (HC) LIPID PANEL W REFLEX MEASURED LDL Routine 01/18/2025 9:23 AM MACHINE STRAP BUCKLER Type 2 diabetes mellitus without complication, without long-term current use of insulin (HC) URINE ALBUMIN TO CREATININE RATIO, RANDOM Routine 01/18/2025 9:22 AM MACHINE STRAP BUCKLER Type 2 diabetes mellitus without complication, without long-term current use of insulin (HC) PROTIME-INR Routine 01/18/2025 9:22 AM MACHINE STRAP BUCKLER Bilateral pulmonary embolism (HC) Anticoagulation monitoring, INR range 2-3 INR,POCT Routine 12/29/2024 2:14 PM MACHINE STRAP BUCKLER Bilateral pulmonary embolism (HC) Anticoagulation monitoring, INR range 2-3 from Last 3 Months Results * (ABNORMAL) INR - POCT [57330.2] - Standing Order (03/08/2025 9:04 AM CDT) Only the most recent of4 resultswithin the time period is included. INR 2.0(H) ratio [facility] Comment: INRs >2.9 may be falsely [...] PROTHROMBIN TIMEP 24.4(H) 10.5 - 13.[address] [facility] Comment: Point of care fingerstick Prothrombin Time/INR results may vary from venous Prothrombin Time/INR methodologies. Any results exhibiting inconsistency with the patient's clinical status should be repeated using a venous Prothrombin Time/INR method. Blood BLOOD SPECIMEN / Unknown 03/08/2025 9:04 AM CDT 03/08/2025 9:05 AM CDT Fernando Alex MD LABORATORY Final Resu lt [facility] [address] [place] [address], [facility] [address] [place] [address] * EKG 12 LEAD (01/26/2025 10:23 AM CDT) us Fernando Alex MD EKG ORD Final Resu lt * VT READING EKG - NO CHARGE, COMP ONLY [...] * (ABNORMAL) HEMOGLOBIN A1C (01/18/2025 9:23 AM MACHINE STRAP BUCKLER) HEMOGLOBIN A1C 9.1(H) <5.7 % of total Hgb [facility] Comment: For someone without known diabetes, [...] BLOOD SPECIMEN / Unknown 01/18/2025 9:23 AM MACHINE STRAP BUCKLER 01/18/2025 9:24 AM MACHINE STRAP BUCKLER Fernando Alex MD CHEMISTRY Final Resu lt Performing Organization Address [facility]/ZIP Co de Phone Number [facility] [employer] [facility] [address] [place] [address], [place] [phone] [facility] [address] [place] [address] * LIPID PANEL W REFLEX MEASURED LDL (01/18/2025 9:23 AM MACHINE STRAP BUCKLER) CHOLESTEROL, TOTAL 143 <200 mg/dL [facility] [...] LDL-C. Edward SS et al. SHAYNE. 2013;310(19): 3437-7381 (http://education.Covelus.Fourier Education/faq/LAG478) CHOL/HDLC RATIO 2.8 <5.0 (calc) [facility] NON HDL CHOLESTEROL 91 <130 mg/dL (calc) [facility] Comment: For patients with diabetes plus 1 major ASCVD risk factor, treating to a non-HDL-C goal of <100 mg/dL (LDL-C of <70 mg/dL) is considered a therapeutic option. Blood BLOOD SPECIMEN / Unknown 01/18/2025 9:23 AM MACHINE STRAP BUCKLER 01/18/2025 9:24 AM MACHINE STRAP BUCKLER Fernando Alex MD CHEMISTRY Final Resu lt Performing Organization Address City/[facility]/ZIP Co de Phone Number [facility] [employer] [address] [place] [address], [place] [phone] [facility] [address] [place] [address] * (ABNORMAL) BASIC METABOLIC PANEL (01/18/2025 9:23 AM MACHINE STRAP BUCKLER) [facility] GLUCOSE 142(H) 65 - 99 mg/dL [employer] [facility] Comment: Fasting reference interval For someone without known diabetes, a glucose value >125 mg/dL indicates that they may have diabetes and this should be confirmed with a follow-up test. UREA NITROGEN (BUN) 36(H) 7 - 25 mg/dL [facility] CREATININE 1.29(H) 0.70 - 1.22 mg/dL [facility] EGFR 54(L) > OR = 60 mL/min/1.7 3m2 [facility] BUN/CREATININE RATIO 28(H) 6 - 22 (calc) [facility] SODIUM 139 135 - 146 mmol/L [facility] POTASSIUM 4.9 3.5 - 5.3 mmol/L [facility] CHLORIDE 102 98 - 110 mmol/L [facility] CARBON DIOXIDE 25 20 - 32 mmol/L [facility] ELECTROLYTE BALANCE 12 7 - 17 mmol/L (calc) [facility] CALCIUM 9.5 8.6 - 10.3 mg/dL [facility] Blood BLOOD SPECIMEN / Unknown 01/18/2025 9:23 AM MACHINE STRAP BUCKLER 01/18/2025 9:24 AM MACHINE STRAP BUCKLER us Fernando Alex MD CHEMISTRY Final Resu lt [employer] [facility] [address] [place] [address], [place] [phone] [facility] [address] [place] [address] * URINE ALBUMIN TO CREATININE RATIO, RANDOM (01/18/2025 9:22 AM MACHINE STRAP BUCKLER) ALB RAND URINE <12.0 mg/L 01/18/2025 6:44 PM MACHINE STRAP BUCKLER [facility] CREATININE,URINE 0.68 g/L 01/19/20 6:44 PM MACHINE STRAP BUCKLER [facility] ALBUMIN TO CREATININE RATIO,RAND UR 01/18/2025 6:44 PM MACHINE STRAP BUCKLER [facility] Comment:Urine Albumin below measurement range, unable to calculate. Urine URINE SPECIMEN / Unknown Non-Blood / Unknown 01/18/2025 9:22 AM MACHINE STRAP BUCKLER 01/18/2025 9:22 AM MACHINE STRAP BUCKLER Narrative [facility] - 01/18/2025 6:44 PM MACHINE STRAP BUCKLER If Albumin to Creatinine Ratio is elevated, consider the following: Elevations seen with incipient nephropathy associated with diabetes mellitus or hypertension. Stress, exercise,hematuria, and urinary tract infection may also produce elevated results. If clinically indicated, confirm with 24 Hour Albumin to Creatinine Ratio. Fernando Alex MD URINE Final Resu lt [facility] [address] [place] [address], [place] * (ABNORMAL) PROTIME-INR [[id number]] - Standing Order (01/18/2025 9:22 AM MACHINE STRAP BUCKLER) INR 1.8(H) <1.3 01/18/2025 2:59 PM MACHINE STRAP BUCKLER [facility] PROTIME 21.2(H) 10.6 - 12.4 sec 01/18/2025 2:59 PM MACHINE STRAP BUCKLER [facility] Blood BLOOD SPECIMEN / Unknown [facility] / Unknown 01/18/2025 9:22 AM MACHINE STRAP BUCKLER 01/18/2025 9:22 AM MACHINE STRAP BUCKLER [facility] - 01/18/2025 2:59 PM MACHINE STRAP BUCKLER Therapeutic Range 2.0-3.0 for most anticoagulated patients [...] Fernando Alex MD HEMATOLOGY Final Resu lt [facility] [address] [place] [address], from Last 3 Months Insurance MEDICARE PB ONLY MEDICARE PART B HB ONLY [place] [address] FORMERLY [facility], [facility]–1983 [employer] Care Teams Assistant Professor Of German Relationship Specialty Start Date End Date Fernando Alex MD [address] [place] [address] PCP - General Family Practice 07/25/17
[2025-03-28 13:27] LABS: Chloride* 103 mmol/L (96-114); Potassium* 4.6 mmol/L (3.6-5.1); Sodium* 138 mmol/L (135-149)
[2025-03-28 13:29] LABS: INR 1.48 (0.91-1.10); Prothrombin Time 18.9 Seconds
[2025-03-28 13:30] LABS: Anion Gap 10 mEq/L (7-15); Blood Urea Nitrogen* 35 mg/dL (7-30); Calcium* 9.6 mg/dL (8.4-10.6); Carbon Dioxide* 25 mmol/L (20-32); Creatinine* 1.3 mg/dL (0.5-1.5); Est. Creatinine Clearance* 35.48; Estimated Glomerular Filt Rate 54 ml/min; Glucose* 109 mg/dL (60-115)
== END 2025-03-28 13:56 | disposition home or self-care (01) ==
PROVIDERS: Emergency Provider Family Medicine; PCP Family Medicine
DX: I95.1 Orthostatic hypotension (principal); Z79.01 Long term (current) use of anticoagulants
CPT/HCPCS: 36415; 80048; 85025; 85610; 93005; 99283; 99284